=== PATIENT | female | born 1960 | race Caucasian/White ===

== ENCOUNTER → 2024-01-09 07:58 | Outpatient (REF) | payer OTHER, SELFPAY | LOC: MRI 3T 07:58 | PROVIDERS: ATTENDING PHYSICIAN Family Medicine | DX: R53.1 Weakness (principal); M48.02 Spinal stenosis, cervical region | CPT/HCPCS: 72141 ==

== ENCOUNTER 2024-02-24 15:55 | Inpatient (IN) | payer OTHER, SELFPAY ==
[2024-02-24] VITALS (12 sets, daily range): BP systolic 102–141; BP diastolic 46–96; BMI 20.4; BMI 20.9
--- NOTE | 2024-02-24 11:44 | ED.GENMED ---
History of Present Illness
General
Chief Complaint: Bowel Problem
Time Seen by Provider: 02/24/24 11:44
Travel History
Have you had any contact with someone who has COVID-19?: No
Do you have any symptoms of coronavirus? Fever > 100 degrees, chills, cough, shortness of breath, sore throat, loss of taste or smell, muscle aches, or headache?: No
History of Present Illness
History of Present Illness:
HPI: The patient presents with general unwell feeling including diarrhea and vomiting with poor p.o. intake. She states that she has had pancreatitis related to alcohol use in the past. She has had similar episodes with pancreatitis in the past.
She is here with her son that had similar but much less severe symptoms.
EXAM:
GENERAL: Well appearing in no distress
HEENT: Slightly dry oral mucosa
CARDIOVASCULAR: No murmurs, normal heart rate, regular rhythm, No chest wall tenderness
PULMONARY: No respiratory distress, breath sounds are clear and equal
ABDOMEN: Soft with no peritoneal signs, no tenderness, briskly heme positive brown stool
NEUROLOGIC: Excellent strength all extremities, no coordination deficits
PSYCHIATRIC: Appropriate mental status, normal insight and judgement
EXTREMITIES: Nontender, no edema, moves all extremities equally
SKIN: No rash, no lesions
TIME OF INITIAL ENCOUNTER: 12:30 PM
NUMBER AND COMPLEXITY OF PROBLEMS ADDRESSED AT THE ENCOUNTER
� Chronic conditions affecting care: High blood pressure, pancreatitis, depression
� Acute Exacerbation and/or Progression of Chronic Illness: This is an acute problem but has had similar episodes in the past
� Differential Diagnosis includes: Diarrhea and vomiting related to viral illness/foodborne illness, electrolyte abnormality, anemia
AMOUNT AND/OR COMPLEXITY OF DATA TO BE REVIEWED AND ANALYZED
� I performed an independent evaluation of and my interpretation is:
EKG:
CT:
X-rays:
Laboratory Studies: BUN 44, creatinine 0.9, bicarbonate 17, potassium 3.1, white count 16.3, hemoglobin 8.1
Other:
� Review of other/old records: Hemoglobin in 2021 was 10.9 but she has been as low as 7.4 in the past
� Clinical information was obtained by an independent historian: Spoke to son at bedside
� Prescriptions/Medications Considered but not given:
� Further testing considered but not performed: Considered CT imaging however the patient reports more of a diarrhea type of feeling as opposed to true significant pain. She has had a few CTs of the abdomen pelvis in the past in
the setting of pancreatitis were no other concern was found.
RISK OF COMPLICATIONS AND/OR MORBIDITY OR MORTALITY OF PATIENT MANAGEMENT
� Social determinants of health affecting care: Lives at home
� Discussion with other providers: Hospitalist for admission
� Escalation of care including admission/observation vs risk of discharge considered: The patient was given IV fluids. I have also ordered potassium given the potassium of 3.1 in the setting of diarrhea. Her lipase is normal.
On reassessment at 2:20 PM, she reports no significant improvement. She is persistently tachycardic. Will give a second liter of fluid. Leukocytosis noted however she describes more of a diarrhea sensation as opposed to true abdominal pain and
has no significant tenderness or at least focal findings. Her hemoglobin has dropped down to 8.1 from 10.9 and she has had report of bright red blood per rectum. However on digital rectal examination it was more of a dark brown stool with no gross
blood but was briskly heme positive. Her bicarb is only 17 and her BUN is 44 with a creatinine 0.9. I am concerned for dehydration as well as GI bleed. I have also replaced her potassium. I have ordered Pepcid and Protonix.
Past History
Past History
ED Past Medical History: HTN and Other (Chronic back and neck pain)
ED Past Surgical History: Orthopedic (Right hand finger, right shoulder rotator cuff surgery �2)
Social History
Tobacco: Former smoker (Quit 40 years ago)
Alcohol: Occasional (States she has 3-4 shots of whiskey a day)
Personal:
Living: with family (Lives with son)
Employment: Employed ([employer])
Phy Exam
Physical Exam
Physical Exam:
See HPI
Course
Orders/Labs/Results
Orders:
Orders
02/24/24 11:44
0.9% Sodium Chloride 1000 ml [Nss] 1,000 ml IV BOLUS
02/24/24 11:49
Famotidine [Pepcid] 20 mg IV NOW STA
Ondansetron Injectable [Zofran] 4 mg IV NOW STA
02/24/24 11:53
Complete Blood Count/With Diff Urgent
Comprehensive Metabolic Panel Urgent
Lipase Urgent
02/24/24 13:35
Potassium Chloride Powder [Klor-Con] 40 meq PO NOW STA
02/24/24 14:18
STOOL [C difficile Antigen & Toxins] Urgent
KURT Source: Feces/Stool
Specimen Description:
Stool Culture Urgent
KURT Source: Feces/Stool
Specimen Description:
0.9% Sodium Chloride 1000 ml [Nss] 1,000 ml IV BOLUS
02/24/24 14:23
Pantoprazole [Protonix IV] 80 mg IV NOW STA
Abnormal Lab Results
02/24/24
11:53
WBC 16.3 H 10^3/uL
(4.8-10.8)
RBC 2.33 L 10^6/uL
(4.20-5.40)
Hgb 8.1 L g/dL
(12.0-16.0)
Hct 23.4 L %
(37.0-47.0)
MCV 100.4 H fL
(81.0-99.0)
MCH 34.8 H pg
(27.0-31.0)
Abs Immat Gran (auto) 0.2 H 10^3/uL
(0-0.05)
Absolute Neuts (auto) 13.8 H 10^3/uL
(1.4-6.5)
Absolute Lymphs (auto) 1.1 L 10^3/uL
(1.2-3.4)
Absolute Monos (auto) 1.2 H 10^3/uL
(0.1-0.6)
Immature Gran % 0.9 H %
(0-0.5)
Neutrophils % 84.8 H %
(42.2-75.2)
Lymphocytes % 6.8 L %
(20.5-51.1)
Sodium 133 L mmol/L
(135-145)
Potassium 3.1 L mmol/L
(3.5-5.1)
Chloride 109 H mmol/L
(98-107)
Carbon Dioxide 17 L mmol/L
(22-30)
BUN 44 H mg/dl
(7-17)
Glucose 146 H mg/dl
(70-99)
Calcium 10.6 H mg/dl
(8.4-10.2)
Alkaline Phosphatase 138 H U/L
(38-126)
Total Protein 6.0 L g/dl
(6.3-8.2)
Albumin 3.4 L g/dl
(3.5-5.0)
02/24/24 11:53
02/24/24 11:53
Vital Signs
Initial and Last Documented VS:
Initial Vital Signs
Temp Pulse Resp BP Pulse Ox
98.1 F 114 18 141/96 100
02/24/24 11:30 02/24/24 11:30 02/24/24 11:30 02/24/24 11:30 02/24/24 11:30
Last Documented Vital Signs
Temp Pulse Resp BP Pulse Ox
99.3 F 114 18 120/69 99
02/24/24 14:42 02/24/24 14:15 02/24/24 14:15 02/24/24 14:00 02/24/24 13:45
*Critical Care Note
Total Time (30-74mins, 75-104mins- exclusive of procedures): Not Applicable
ED Attending Note
-
Portions of this chart may have been created with voice recognition software.� Occasional wrong word or��sound alike� substitutions may have occurred due to the inherent limitations of voice recognition software.
Discharge Plan
Departure
Patient Disposition: Admit
Date of Disposition: 02/24/24
Time of Disposition: 14:23
Presentation/result/management discussed w/ accepting MD/DO: Hospitalist
Discharge Problem:
Acute dehydration
Prescriptions:
No Action
metoprolol tartrate 25 MG tablet
25 mg PO BID
bupropion HCl 150 mg tablet sustained-release 12 hr
150 mg PO BID
Rx Instructions:
02/24/2024, take with 75 mg for a total of 225 mg.
meloxicam 15 mg Tablet
15 mg PO BID
loperamide [Imodium A-D] 2 mg Tablet
1 mg PO Q4H PRN (Reason: diarrhea)
bupropion HCl 75 mg tablet
75 mg PO BID
Rx Instructions:
02/24/2024, take with 150 mg for a total of 225 mg.
ibuprofen 200 mg Tablet
600 mg PO TID
metaxalone 800 mg Tablet
800 mg PO BID
Pancreatic Enzymes
1 cap PO MEALS
Patient Comments:
02/24/2024, Pancreatic Enzyme Blend: 1000 mg; Protease: 223,000 NURSING HOME units; Amylase: 245,000 NURSING HOME units; Lipase: 35,500 NURSING HOME units. [employer] Brand.
loratadine 10 mg Tablet
10 mg PO DAILY
Referrals:
Damian Worthy MD [Family Provider] -
Interventions
Interventions:
*Risk Screen - Suicide Last Done: 02/24/24 11:30
*General Assessment Last Done: 02/24/24 12:02
*Neglect/Abuse Screening Last Done: 02/24/24 11:30
*ED COVID-19 Vaccine History Last Done: 02/24/24 11:30
IQ-Xrhmom-Gbmttaqfya Assessment Last Done: 02/24/24 14:23
Discharge Date and Time
Print Language: CITIZEN OF [place]
[2024-02-24] MEDS: NSS 1000 IV ×2 (11:56→14:33)
[2024-02-24] MEDS: ZOFRAN 4 MG IV (12:00)
[2024-02-24] MEDS: PEPCID 20 MG IV (12:01)
[2024-02-24 12:06] LABS: % Basophils 0.1 % (0-2); % Immature Granulocytes 0.9 % (0-0.5); % Lymphocytes 6.8 % (20.5-51.1); % Monocytes 7.4 % (1.7-9.3); % Neutrophils 84.8 % (42.2-75.2); Absolute Immature Granulocytes 0.2 10^3/uL (0-0.05); Absolute Lymphocytes 1.1 10^3/uL (1.2-3.4); Absolute Monocytes 1.2 10^3/uL (0.1-0.6); Absolute Neutrophils 13.8 10^3/uL (1.4-6.5); Hematocrit 23.4 % (37.0-47.0); Hemoglobin 8.1 g/dL (12.0-16.0); Mean Corp Hgb Conc. 34.6 g/dL (33.0-37.0); Mean Corpuscular Hgb 34.8 pg (27.0-31.0); Mean Corpuscular Volume 100.4 fL (81.0-99.0); Mean Platelet Volume 9.8 fL (7.4-10.4); Nucleated Red Blood Cells % 0 %; Platelet Count 231 10^3/uL (130-400); Red Blood Cell Count 2.33 10^6/uL (4.20-5.40); Red Cell Dist. Width 12.7 % (11.5-14.5); White Blood Cell Count 16.3 10^3/uL (4.8-10.8)
[2024-02-24 12:30] LABS: ALT (SGPT) 12 U/L (0-35); AST (SGOT) 21 U/L (14-36); Albumin 3.4 g/dl (3.5-5.0); Alkaline Phosphatase 138 U/L (38-126); Blood Urea Nitrogen 44 mg/dl (7-17); Calcium 10.6 mg/dl (8.4-10.2); Carbon Dioxide 17 mmol/L (22-30); Chloride 109 mmol/L (98-107); Estimated Creatinine Clearance 60 ml/min; Glucose 146 mg/dl (70-99); Lipase 67 U/L (23-300); Potassium 3.1 mmol/L (3.5-5.1); Sodium 133 mmol/L (135-145); Total Bilirubin 0.4 mg/dl (0.2-1.3); eGFR > 60.00
[2024-02-24] MEDS: KLOR-CON 40 MEQ PO (14:39)
[2024-02-24] MEDS: PROTONIX IV 80 MG IV ×2 (14:42→17:16)
--- NOTE | 2024-02-24 15:50 | HPS.HSE ---
Addendum entered and electronically signed by Lefty Larios MD 02/24/24 16:19:
63-year-old female admitted because of diarrhea which started Thursday after she ate seafood. No one else at home sick. She has multiple bowel movements a day with blood
On examination not in any acute distress
Awake alert oriented
Cardiovascular system S1-S2 appreciated
Chest clear to auscultation
Abdomen soft and nontender
No pedal edema
Neuroexam is nonfocal
# SIRS in the setting of bloody diarrhea likely infectious in nature
Stool studies
IV fluids with bicarb
Hold off on antibiotics
Add PPI
Hold ibuprofen
GI consultation
# Metabolic acidosis likely secondary to diarrhea-fluids with bicarb
# Acute blood loss anemia likely secondary to rectal bleeding she also has chronic anemia
Check iron studies
Follow hemoglobin
# Hypokalemia likely secondary to GI losses
Replace potassium
Check magnesium
# Hypertension-hold metoprolol
# Depression-continue Wellbutrin
# Arthritis and chronic back pain-patient should not be taking meloxicam and ibuprofen especially with alcohol use
# Alcohol use disorder she drinks 4 Herbert shots every day
PPI
Cessation counseling
Replace thiamine and folic acid
Stop alcohol 2 days ago.
Watch for withdrawal symptoms MSAS protocol.
# History of pancreatitis-on pancreatic enzymes
# DVT prophylaxis SCDs
# Full code
Original Note:
Family Physician
-
Family Physician: Damian Worthy
Chief Complaint
-
Bloody Diarrhea
History of Present Illness
This is a 63 year old female with a past medical history of hypertension, pancreatitis, depression and chronic back pain who presents to the ED for diarrhea and nausea x 2 days. She states these symptoms began on 02/21 after a lobster dinner on
Thursday and steak and potatoes dinner on Thursday. On Thursday, she was unable to take more than a few bites due to onset of nausea. The diarrhea has been constant since onset and has been liquid with dark maroon blood in nature. She tried taking
Imodium 1 tablet TID on 02/22 with no relief. She also has mild non- radiating lower abdominal pain that is crampy in nature. She states she has experienced diarrhea with blood before when she last was diagnosed with pancreatitis. She states her son
has similar but more mild symptoms, but states he did not eat the lobster and think he just has a 'nervous stomach.' She admits to sweats and chills, but denies recorded fevers. She denies recent antibiotics or recent travel.
Medical History
Past Medical History
Past Medical History: Reports Other
Additional Past Medical History:
Essential Hypertension
Depression
Osteoarthritis with Chronic Back/Neck Pain
Alcohol Use Disorder
Past Surgical History: Reports Other
Additional Past Surgical History:
Right Rotator Cuff
Social History
Tobacco: Non-smoker
Alcohol: Daily (3-4 shots of whiskey per night)
Family History
Family History: Not pertinent
Allergies / Home Medications
Allergies reflects when Allergies were last updated in [facility].
Home Medications with original date entered in [facility]
Allergy/Medication List:
Allergies
Allergy/AdvReac Type Severity Reaction Status Date / Time
No Known Allergies Allergy Verified 02/24/24 11:30
Home Medications
metoprolol tartrate 25 mg tablet 25 mg PO BID Blood Pressure 02/03/22
Pancreatic Enzymes 1 cap PO MEALS Gastrointestinal Issue 02/24/24
bupropion HCl 150 mg tablet,12 hr sustained-release 150 mg PO BID depession/anxiety 02/24/24
bupropion HCl 75 mg tablet 75 mg PO BID depression/anxiety 02/24/24
ibuprofen 200 mg tablet 600 mg PO TID pain 02/24/24
loperamide 2 mg tablet (Imodium A-D) 1 mg PO Q4H PRN diarrhea 02/24/24
loratadine 10 mg tablet 10 mg PO DAILY Allergies 02/24/24
meloxicam 15 mg tablet 15 mg PO BID pain 02/24/24
metaxalone 800 mg tablet 800 mg PO BID Muscle Spasms 02/24/24
Review of Systems
-
A 12 point ROS was completed and negative except as noted: Yes
Constitutional: Reports Chills; Denies Fever
Respiratory: Denies Cough or Trouble Breathing
Cardiac: Denies Chest Pain or Palpitations
Abdomen/GI: Reports Abdominal Pain, Nausea and Diarrhea; Denies Vomiting
Physical Exam
Vital Signs
Vital Signs
Temp Pulse Resp BP Pulse Ox
99.3 F 114 18 120/69 99
02/24/24 14:42 02/24/24 14:15 02/24/24 14:15 02/24/24 14:00 02/24/24 13:45
Physical Exam
General: Comfortable and Conversant
HEENT: Anicteric and Moist mucous membranes
Respiratory: Clear and Non Labored Respirations
Cardiac: S1/S2, Regular Rhythm and Tachycardia
GI: Soft and Tender (Mild in suprapubic region without rebound or guarding)
Musculoskeletal: No Clubbing, Cyanosis, No Cyanosis and No Edema
Skin: Warm and Dry
Neuro: Awake, Alert, Oriented and Nonfocal/grossly intact
Psych: Calm
Laboratory Results
-
02/24/24 11:53
Laboratory Results
Total Bilirubin 0.4 mg/dl (0.2-1.3) 02/24/24 11:53
AST 21 U/L (14-36) 02/24/24 11:53
ALT 12 U/L (0-35) 02/24/24 11:53
Alkaline Phosphatase 138 U/L (38-126) H 02/24/24 11:53
Lipase 67 U/L (23-300) 02/24/24 11:53
Data Reviewed
-
Lab Data: Labs Reviewed by me
Impression/Plan
-
SIRS in setting of Bloody Diarrhea, likely infectious diarrhea
-Consult GI
-Check Stool Culture and Stool for C Diff
-Hold on antibiotics
-Continue IVFs
Acute Blood Loss Anemia
-Check iron studies, vitamin b12 and folic acid
-Trend Hgb
Hypokalemia secondary to GI losses
-Replace potassium
-Check magnesium level
-Recheck potassium level in AM
Essential Hypertension
-Hold oral meds for now
Depression
-Continue Wellbutrin
Osteoarthritis with Chronic Back/Neck Pain
-Reviewed with patient about not taking ibuprofen and meloxicam at the same time
Alcohol Use Disorder
-Continue alcohol withdrawal protocol
-Continue thiamine and folic acid
DVT proph: SCDs
Code Status: Full Code
[2024-02-24 16:07] LABS: Magnesium 1.8 mg/dl (1.6-2.3)
--- NOTE | 2024-02-24 16:18 | CON.GI ---
Addendum entered and electronically signed by Margaret Colón DO 02/24/24 16:46:
I saw and examined the patient.
The TRUST VAULT CLERK or PA's note was reviewed and I agree with the note.
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
started following consumption of lobster. No other family or friends ate the same meal. Has a difficult time describing the stool, at times red but also black, occurs more than hourly in the fasting state, with multiple nighttime occurrences. She
endorses nausea, denies any vomiting, also reports anorexia since symptoms started. Denies recent antibiotic use or sick contacts. She is an active alcohol user, takes 4 shots of whiskey daily prior to bedtime, last drink was Thursday. States that
due to her severe diarrhea and abdominal discomfort she has not had a drink since that time. Denies history of withdrawal symptoms.
Prior EGD and colonoscopy in 2019, EGD with large amount of retained food, indication was anemia and melena. Colonoscopy with sigmoid diverticulosis, otherwise unremarkable.
Meloxicam and Ibuprofen listed on home medications, but patient denied on eval.
Tmax 99.3, tachycardic to 110's, otherwise, hemodynamically stable. Hemoglobin 8.1 on arrival, last Hgb was 10.2 in 01/2022, Plt 428. Elevated BUN with normal Cr., gelatinous, dark brown, heme positive stool on rectal. Concern for UGIB, unclear if
this is true diarrhea, or, if patient is actually just having melenic stool, mistakening for diarrhea. That said, she does have a leukoctyosis, otherwise, afebrile She has risk factors for UGI bleeding, including NSAID use and daily EtoH use, no
known history of cirrhosis. She has mild elevation in alk phos.
Recommendations:
-2 large bore peripheral gauge IVs
-IVF
-PPI gtt
-H&Hq8 hours, transfuse for hgb <8
-iron studies
-NPO, EGD in AM
-check stool studies, blood cultures
-depending on results from EGD, will discuss if colonoscopy needs to be pursued
Original Note:
Consultation
-
Date/Time Consultation Requested: 02/24/24 1600
Date/Time Consultation Performed: 02/24/24 1615
Requesting Provider: BILLY Larson
Performing Provider: Dr. Colón/ROMMEL Jordan
Reason for Consultation: diarrhea
Medical History
Chief Complaint / HPI
Chief Complaint: diarrhea
History of Present Illness:
63-year-old female past medical history of hypertension, pancreatitis, alcohol abuse, depression, chronic back pain presents to the emergency room with melena/black stools since Thursday after eating lobster. The patient states that she ate lobster
on Thursday and developed acute onset of black diarrhea since then associated with nausea without any vomiting. Multiple times a day more than she can count. She states that she would have abdominal cramping prior to evacuation of bowels. She
drinks approximately 4 whiskeys a night but stopped on Thursday evening. She denies any fevers, chills, vomiting, hematochezia, dysphagia or odynophagia. No early satiety or unintentional weight loss.Patient states that she has some dyspnea on
exertion and mild shortness of breath. There is minimal stool in the rectal vault however this is very dark brown that is briskly OB positive performed rectal by myself. The patient denies any history of anticoagulation, aspirin ibuprofen Motrin or
Aleve. . Patient presents with a WBC count 16.3, hemoglobin 8.1, hematocrit of 23.4, MCV 100.4, MCH 34.8, platelets 231, no coags, sodium 133, potassium 3.1, chloride 109, CO2 17, BUN 44, creatinine 0.9, glucose 146, calcium 10.6, magnesium 1.8,
iron studies pending, total bilirubin 0.4, AST 21, ALT 12, alk phos 138, albumin 3.4, lipase 67. No imaging studies at this time.
Past Medical History
Past Medical History: HTN and Other (Pancreatitis, depression, chronic back pain, History of peptic ulcer disease 'many years ago')
Past Surgical History: Orthopedic (Right rotator cuff)
Social History
Tobacco: Non-Smoker
Alcohol: Daily (4 drinks whiskey nightly. Last drink was Thursday )
Drug: None
Personal:
Living: With Family (son Christopher lives at home with her)
Family History
Family History: Other (Family history of colon cancer in maternal grandparent, No other family history of gastrointestinal malignancy or IBD)
Allergies / Home Medications
Allergy/AdvReac Type Severity Reaction Status Date / Time
No Known Allergies Allergy Verified 02/24/24 11:30
�Medication �Instructions �Recorded
metoprolol tartrate 25 mg tablet 25 mg PO BID Blood Pressure 02/03/22
Pancreatic Enzymes 1 cap PO MEALS Gastrointestinal 02/24/24
Issue
bupropion HCl 150 mg tablet,12 hr 150 mg PO BID depession/anxiety 02/24/24
sustained-release
bupropion HCl 75 mg tablet 75 mg PO BID depression/anxiety 02/24/24
ibuprofen 200 mg tablet 600 mg PO TID pain 02/24/24
loperamide 2 mg tablet (Imodium 1 mg PO Q4H PRN diarrhea 02/24/24
A-D)
loratadine 10 mg tablet 10 mg PO DAILY Allergies 02/24/24
meloxicam 15 mg tablet 15 mg PO BID pain 02/24/24
metaxalone 800 mg tablet 800 mg PO BID Muscle Spasms 02/24/24
Review of Systems
-
All other systems: A 12 pt ROS was Negative except as stated above in HPI
Vital Signs
Temp Pulse Resp BP Pulse Ox
99.3 F 111 18 116/67 100
02/24/24 14:42 02/24/24 15:45 02/24/24 15:45 02/24/24 15:00 02/24/24 15:45
Physical Exam
Exam
General: No Apparent Distress
HEENT: Anicteric
Respiratory: Clear
Cardiac: Regular Rhythm (Mildly tachycardic at 109 on tele)
GI: Soft, Non Tender, Non Distended and Normal Bowel Sounds
Rectal: Hem Positive (Scant but very dark stool in rectal vault mildly gelatinous, OB positive)
Musculoskeletal: No Edema
Skin: Warm and Dry
Neuro: Awake, Alert, Oriented and Other (Patient had difficult time picking up hands, reqiored assistance to hold up and appeared slightly confused at times)
Psych: Calm
Results
WBC 16.3 10^3/uL (4.8-10.8) H 02/24/24 11:53
Hgb 8.1 g/dL (12.0-16.0) L 02/24/24 11:53
Hct 23.4 % (37.0-47.0) L 02/24/24 11:53
MCV 100.4 fL (81.0-99.0) H 02/24/24 11:53
Plt Count 231 10^3/uL (130-400) 02/24/24 11:53
Absolute Neuts (auto) 13.8 10^3/uL (1.4-6.5) H 02/24/24 11:53
Sodium 133 mmol/L (135-145) L 02/24/24 11:53
Potassium 3.1 mmol/L (3.5-5.1) L 02/24/24 11:53
Chloride 109 mmol/L (98-107) H 02/24/24 11:53
Carbon Dioxide 17 mmol/L (22-30) L 02/24/24 11:53
BUN 44 mg/dl (7-17) H 02/24/24 11:53
Creatinine 0.9 mg/dL (0.6-1.0) 02/24/24 11:53
Calcium 10.6 mg/dl (8.4-10.2) H 02/24/24 11:53
Total Bilirubin 0.4 mg/dl (0.2-1.3) 02/24/24 11:53
AST 21 U/L (14-36) 02/24/24 11:53
ALT 12 U/L (0-35) 02/24/24 11:53
Alkaline Phosphatase 138 U/L (38-126) H 02/24/24 11:53
Lipase 67 U/L (23-300) 02/24/24 11:53
Diagnostic Image Results:
none
Prior GI Procedures:
EGD: EGD: 07/20/2020 Dr. Ontiveros
Normal esophagus.
- Z-line regular, 40 cm from the incisors.
- A medium amount of food (residue) in the stomach (body), which limited the examination of the gastric body.
- Normal duodenal bulb and second portion of the duodenum.
- No specimens collected. '
Colonoscopy: ([facility] ) 07/21/2020 - Diverticulosis in the sigmoid colon.
- The examination was otherwise normal.
- No specimens collected.
Assessment / Plan
-
63-year-old female past medical history of hypertension, pancreatitis, alcohol abuse, depression, chronic back pain presents to the emergency room with melena/black stools since Thursday after eating lobster. The patient states that she ate lobster
on Thursday and developed acute onset of black diarrhea since then associated with nausea without any vomiting. Multiple times a day more than she can count. She states that she would have abdominal cramping prior to evacuation of bowels. She
drinks approximately 4 whiskeys a night but stopped on Thursday evening. Upon review of records patient was seen in 2021 also had diarrhea at that time. Infectious etiology was ruled out. Fecal fats were within normal limits in 2021. Also on review
of records it appears as if patient is also taking ibuprofen 600 mg 3 times daily for pain. She also appears as if she is also on meloxicam 15 mg p.o. twice daily as well. Patient might not realize that she is on these medications and that they
are NSAIDs. Patient with elevated BUN out of proportion of creatinine with OB positive stools and anemia. History of peptic ulcer disease in the past she states that she was on either cimetidine or ranitidine. Also with chronic alcohol abuse.
Prior history of diarrhea in 2021 did not follow-up for further workup.
Impression:
Diarrhea-> per patient started after [facility] however looks as if she was on Pancreatic enzymes at home, was worked up in the past 2021, unsure if she is referring to melena.
Melena-> Black stools since Thursday with BUN out of proportion to Creat with hx of remote PUD, NSAIDs and ETOH abuse
Anemia-> Hgb 8.1 past 10.9 (2021)
Stool Occult blood positive-> very dark, scant stool in vault
ETOH abuse-> daily whisky 3-4, last use Thursday.
Leukocytosis
Hypokalemia
Acidosis
Plan:
-NPO except meds
-Protonix gtt
-Trend hemoglobin transfuse for hemoglobin less than 7
-EGD planned for tomorrow
-Patient states that her son Christopher can make decisions on her behalf if she becomes incapacitated
-Await pending stool studies
-Blood cultures to be drawn and are pending
-CBC, CMP, PT/INR in a.m.
-alcohol withdrawal prophylaxis
-Further recommendations to be forthcoming
-
-
Thank you for consultation and allowing me to participate in the patient's care. Please call the contact center specialist GI physician during the after hours with any questions or concerns.
[2024-02-24 16:27] LABS: Iron 55 ug/dl (37-170)
[2024-02-24 16:37] LABS: Percent Saturation 21 % (20-50); Total Iron Binding Capacity 253 ug/dl (265-497)
[2024-02-24] MEDS: SODIUM BICARBONATE 1150 MEQ IV (17:17)
[2024-02-24] MEDS: PROTONIX 100 IV (17:39)
[2024-02-24 17:56] LABS: Folate 6.9 ng/ml (2.76-20); Vitamin B12 279 pg/ml (239-931)
[2024-02-24] MEDS: THIAMINE INJECTION 200 MG IV (20:03)
[2024-02-24] MEDS: WELLBUTRIN SR (12 hour sustained release) 150 MG PO (20:03)
[2024-02-24] MEDS: WELLBUTRIN REGULAR RELEASE 75 MG PO (20:03)
[2024-02-24 20:20] LABS: Hematocrit 17.7 % (37.0-47.0); Hemoglobin 6.3 g/dL (12.0-16.0)
[2024-02-24 20:29] LABS: Blood Urea Nitrogen 34 mg/dl (7-17); Calcium 9.3 mg/dl (8.4-10.2); Carbon Dioxide 16 mmol/L (22-30); Chloride 115 mmol/L (98-107); Estimated Creatinine Clearance 69 ml/min; Glucose 107 mg/dl (70-99); Potassium 3.6 mmol/L (3.5-5.1); Sodium 134 mmol/L (135-145); eGFR > 60.00
[2024-02-24] MEDS: ATIVAN 1 MG PO (20:40)
--- NOTE | 2024-02-24 20:52 | W.PN.UPDATE ---
Update Note
Progress Note Update
RN notified LEAD PERFORMANCE SUPPORT ANALYST hgb of 6.3. GI note noted, consent signed and in the chart, Patient is stable with stable VS per nursing. will order 2 units of PRBC's.
[2024-02-25] VITALS (13 sets, daily range): BP systolic 16–130; BP diastolic 52–80; BMI 20.9
[2024-02-25] MEDS: PROTONIX 100 IV ×3 (03:16→23:44)
[2024-02-25 07:21] LABS: Hematocrit 24.1 % (37.0-47.0); Hemoglobin 8.4 g/dL (12.0-16.0); Mean Corp Hgb Conc. 34.9 g/dL (33.0-37.0); Mean Corpuscular Hgb 33.2 pg (27.0-31.0); Mean Corpuscular Volume 95.3 fL (81.0-99.0); Mean Platelet Volume 9.8 fL (7.4-10.4); Platelet Count 154 10^3/uL (130-400); Red Blood Cell Count 2.53 10^6/uL (4.20-5.40); Red Cell Dist. Width 16.4 % (11.5-14.5); White Blood Cell Count 10.5 10^3/uL (4.8-10.8)
[2024-02-25 07:32] LABS: INR 1.07; PT 13.9 Sec (11.4-14.6)
[2024-02-25 07:36] LABS: Blood Urea Nitrogen 27 mg/dl (7-17); Calcium 9.3 mg/dl (8.4-10.2); Carbon Dioxide 19 mmol/L (22-30); Chloride 112 mmol/L (98-107); Estimated Creatinine Clearance 69 ml/min; Glucose 89 mg/dl (70-99); Magnesium 1.7 mg/dl (1.6-2.3); Potassium 3.3 mmol/L (3.5-5.1); Sodium 137 mmol/L (135-145); eGFR > 60.00
[2024-02-25] MEDS: FOLVITE 1 MG PO (08:48)
[2024-02-25] MEDS: THIAMINE INJECTION 200 MG IV ×2 (08:48→20:06)
[2024-02-25] MEDS: WELLBUTRIN REGULAR RELEASE 75 MG PO ×2 (08:48→20:06)
[2024-02-25] MEDS: WELLBUTRIN SR (12 hour sustained release) 150 MG PO ×2 (09:00→20:06)
[2024-02-25] MEDS: SODIUM BICARBONATE 1150 MEQ IV (10:52)
--- NOTE | 2024-02-25 13:00 | W.PN.HOSP.TC ---
Today's Communication/Plan
-
Endoscopy today
Follow hemoglobin
Assessment / Plan
Assessment / Plan
58-year-old female came with bloody stool after she had some lobster. She denies vomiting any blood. Today she admits that she also had some dark black stools.
On examination awake alert oriented
Denies any abdominal pain
Cardiovascular system S1-S2 appreciated
Chest clear to auscultation
Abdomen soft and nontender
No pedal edema
# Rectal bleeding
Melena
Hold NSAIDS
EGD planned today
Continue Protonix and n.p.o.
Stool studies pending
#Acute blood loss anemia
Status post 2 units of blood transfusion
# SIRS in the setting of bloody diarrhea likely infectious in nature
Stool studies
IV fluids with bicarb
Hold off on antibiotics
# Hypokalemia-replace potassium and magnesium
# Metabolic acidosis likely secondary to diarrhea-fluids with bicarb
# Acute blood loss anemia likely secondary to rectal bleeding she also has chronic anemia
Adequate iron levels
Replace low normal B12
# Hypokalemia likely secondary to GI losses
Replace potassium
Check magnesium
# Hypertension-hold metoprolol
# Depression-continue Wellbutrin
# Arthritis and chronic back pain-patient should not be taking meloxicam and ibuprofen especially with alcohol use
# Alcohol use disorder she drinks 4 Herbert shots every day
PPI
Cessation counseling
Replace thiamine and folic acid
Stop alcohol 2 days ago.
Watch for withdrawal symptoms MSAS protocol.
# History of pancreatitis-on pancreatic enzymes
# DVT prophylaxis SCDs
# Full code
Anticipated Discharge: 24 - 48 hours
Subjective/Interval History
-
Date of Service: February 25, 2024
Objective Data
-
Labs:
Laboratory Results
02/25/24
07:07
WBC 10.5
Hgb 8.4 L D
Hct 24.1 L
Plt Count 154 D
PT 13.9
INR 1.07
Sodium 137
Potassium 3.3 L
Chloride 112 H
Carbon Dioxide 19 L
BUN 27 H
Creatinine 0.8
Glucose 89
Calcium 9.3
Vital Signs:
Vital Signs
Temp Pulse Resp BP Pulse Ox
98.1 F 96 16 121/66 100
02/25/24 11:48 02/25/24 11:48 02/25/24 11:48 02/25/24 11:48 02/25/24 11:48
I&O
02/24/24 02/25/24 02/26/24
06:59 06:59 06:59
Intake Total 740 / 740
Balance 740 / 740
[2024-02-25] MEDS: MAGNESIUM SULFATE 102 GRAMS IV (14:01)
--- NOTE | 2024-02-25 14:19 | CM ---
Met with pt at bedside
Pt lives with her in a 2 story home
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
DME - none
SNF/HH - denies past hx
Has ride at d/c
PCP - Dr Bobby Worthy
Pharm - [facility], mail-order, unsure of name
CM will follow for d/c needs
Plan - anticipate home no needs
[2024-02-25] MEDS: KCL 270 MEQ IV (14:58)
[2024-02-25] MEDS: SODIUM BICARBONATE IV (20:00)
[2024-02-26 03:39] VITALS: BP 123/72
[2024-02-26 06:00] VITALS: BMI 21.8
[2024-02-26 06:14] LABS: Hematocrit 23.2 % (37.0-47.0); Hemoglobin 8.3 g/dL (12.0-16.0); Mean Corp Hgb Conc. 35.8 g/dL (33.0-37.0); Mean Corpuscular Hgb 33.1 pg (27.0-31.0); Mean Corpuscular Volume 92.4 fL (81.0-99.0); Platelet Count 160 10^3/uL (130-400); Red Blood Cell Count 2.51 10^6/uL (4.20-5.40); Red Cell Dist. Width 16.4 % (11.5-14.5); White Blood Cell Count 7.8 10^3/uL (4.8-10.8)
[2024-02-26] MEDS: FOLVITE 1 MG PO (07:49)
[2024-02-26] MEDS: WELLBUTRIN SR (12 hour sustained release) 150 MG PO ×2 (07:49→20:00)
[2024-02-26] MEDS: THIAMINE INJECTION 200 MG IV ×2 (07:49→20:01)
[2024-02-26] MEDS: VITAMIN B-12 1000 MCG PO (07:49)
[2024-02-26] MEDS: WELLBUTRIN REGULAR RELEASE 75 MG PO ×2 (07:49→20:00)
[2024-02-26 07:59] VITALS: BP 121/70
[2024-02-26 08:21] LABS: Blood Urea Nitrogen 17 mg/dl (7-17); Calcium 8.9 mg/dl (8.4-10.2); Carbon Dioxide 23 mmol/L (22-30); Chloride 110 mmol/L (98-107); Estimated Creatinine Clearance 81 ml/min; Glucose 100 mg/dl (70-99); Magnesium 1.7 mg/dl (1.6-2.3); Potassium 3.7 mmol/L (3.5-5.1); Sodium 135 mmol/L (135-145); eGFR > 60.00
[2024-02-26] MEDS: PROTONIX 100 IV ×2 (09:07→20:39)
[2024-02-26 12:05] VITALS: BP 115/69
[2024-02-26] MEDS: MAGNESIUM SULFATE 102 GRAMS IV (12:24)
[2024-02-26 13:59] LABS: Hematocrit 24.4 % (37.0-47.0); Hemoglobin 8.6 g/dL (12.0-16.0)
--- NOTE | 2024-02-26 14:02 | W.PN.GI.CBS2 ---
Addendum entered and electronically signed by Hugh Banda MD 02/26/24 14:59:
I saw and examined the patient.
The [employer]'s note was reviewed and I agree with the note.
Upper GI bleeding-noted to have nonbleeding gastric ulcer with clean base/multiple nonbleeding duodenal ulcers on EGD 02/25/2024
Patient continues to have dark stool with abdominal cramps. Repeat hemoglobin is stable.
Will continue monitor H&H
Clear liquid diet today
Continue PPI drip
If she continues to have significant abdominal pain with GI bleeding will consider CTA
Original Note:
Today's Communication / Plan
-
Repeat H&H now. Continue PPI drip. Will reduce diet to clear liquids. Consider CTA imaging if overt bleeding versus CT with contrast given her abdominal cramping and pain.
Assessment / Plan
-
The patient is a 63-year-old female past medical history of hypertension, pancreatitis, alcohol abuse, depression, chronic back pain who presented to the emergency room with melena/black stools after eating lobster with associated n/v. She drinks
approximately 4 whiskeys a night but stopped on Thursday evening. Reported NSAID use with meloxicam and ibuprofen as well. On admission with elevated BUN out of proportion of creatinine with OB positive stools and anemia. History of peptic ulcer
disease in the past she states that she was on either cimetidine or ranitidine. Prior history of diarrhea in 2021 did not follow-up for further workup. She underwent EGD on 02/24 which revealed several nonbleeding ulcers and was advised to continue
on PPI twice daily and avoid NSAIDs. She did receive 1 unit of packed red blood cells and her hemoglobin has been stable.
02/25/2024 EGD, Dr. Colón: Z-line regular. 2 cm hiatal hernia. Congestive gastropathy. Non-bleeding gastric ulcer with a clean ulcer base (Jones Class III). Non-bleeding duodenal ulcers with a clean ulcer base (Jones Class III). Biopsies
were taken with a cold forceps for H pylori testing.
Problem list:
-Diarrhea
-Melena, burgundy stool
-macrocytic Anemia, Hgb 8.1 past 10.9 (2021)
-Stool Occult blood positive
-hx ETOH abuse, daily whisky 3-4, last use Thursday.
-Leukocytosis, resolved
-Hypokalemia, resolved
-Acidosis, resolved
Recommendations::
-EGD findings as above with several gastric and duodenal ulcers that did not have any stigmata of recent bleeding, along with congestive gastropathy. Now with some burgundy stool although with stable hemoglobin.
-Will repeat her H&H at this time
-Continue Protonix drip
-Will place back on clear liquid diet
-Follow stool output and for ongoing signs of bleeding. Mild tachycardia but she is normotensive.
-If she has gross bleeding to consider CTA imaging. She does admit to abdominal cramping, therefore to consider CT imaging to rule out colitis, she is not febrile or hypotensive.
-Reassuringly stools are negative for infection, and repeat C. difficile is negative
-Alcohol withdrawal protocol, her tachycardia may be related to this as she also appeared tremulous
-She should avoid NSAIDs completely
-If ongoing concern for bleeding could also consider inpatient colonoscopy
-Will follow
Subjective
Subjective
Date of Service: February 26, 2024
We were asked to reevaluate the patient due to ongoing signs of GI bleeding. The patient reports she has been having abdominal crampiness associated with maroon stool every time she moves her bowels. Reassuringly her BUN normalized and her
hemoglobin has been stable since yesterday. She continues on PPI drip. She is mildly tachycardic but otherwise with normal hemodynamics.
Objective
Data Reviewed
Laboratory Data:
Laboratory Results
02/26/24 07:47
Laboratory Results
PT 13.9 Sec (11.4-14.6) 02/25/24 07:07
INR 1.07 02/25/24 07:07
Magnesium 1.7 mg/dl (1.6-2.3) 02/26/24 07:47
Total Bilirubin 0.4 mg/dl (0.2-1.3) 02/24/24 11:53
AST 21 U/L (14-36) 02/24/24 11:53
ALT 12 U/L (0-35) 02/24/24 11:53
Alkaline Phosphatase 138 U/L (38-126) H 02/24/24 11:53
Lipase 67 U/L (23-300) 02/24/24 11:53
Vital Signs and I&O:
Vital Signs
Temp Pulse Resp BP Pulse Ox
98.4 F 99 16 115/69 99
02/26/24 12:05 02/26/24 12:05 02/26/24 12:05 02/26/24 12:05 02/26/24 12:05
I&O
02/25/24 02/26/24 02/27/24
06:59 06:59 06:59
Intake Total 740 / 740 240 / 240
Balance 740 / 740 240 / 240
Physical Exam
Physical Exam
HEENT: Anicteric
Cardiology: S1 and S2 (Regular rate/rhythm)
Pulmonary: Clear
GI: Soft, Non Distended, Tender (Minimally tender generalized throughout the abdomen) and Normal Bowel Sounds
Rectal: Other (Burgundy appearing stool (visualized in the bathroom collection hat))
Neuro: Non Focal
--- NOTE | 2024-02-26 14:25 | W.PN.HOSP.TC ---
Today's Communication/Plan
-
Watch Hb
Watch for any more bleeding
? Passing old blood
PPI
Assessment / Plan
Assessment / Plan
58-year-old female came with bloody stool after she had some lobster. She denies vomiting any blood. Today she admits that she also had some dark black stools.
On examination awake alert oriented
Denies any abdominal pain
Cardiovascular system S1-S2 appreciated
Chest clear to auscultation
Abdomen soft and nontender
No pedal edema
# Rectal bleeding
Has maroon Small Bleeds
Melena
Hold NSAIDS
EGD Gastric ulcer with no bleeding and duodenal ulcers with no bleeding
Continue Protonix
She still has bleeding
PPI changed to IV
Diet changed to clears
Stool studies pending
#Acute blood loss anemia
Status post 2 units of blood transfusion
follow Hb
# SIRS in the setting of bloody diarrhea likely infectious in nature
# Hypokalemia-replace potassium and magnesium PRN
# Metabolic acidosis likely secondary to diarrhea-resolved
# Acute blood loss anemia likely secondary to rectal bleeding she also has chronic anemia
Adequate iron levels
Replace low normal B12
# Hypokalemia likely secondary to GI losses
Replace potassium
Replace magnesium
# Hypertension-hold metoprolol
# Depression-continue Wellbutrin
# Arthritis and chronic back pain-patient should not be taking meloxicam and ibuprofen especially with alcohol use
# Alcohol use disorder she drinks 4 Talent shots every day
PPI
Cessation counseling
Replace thiamine and folic acid
Stop alcohol 2 days ago.
Watch for withdrawal symptoms MSAS protocol.
# History of pancreatitis-on pancreatic enzymes
# DVT prophylaxis SCDs
# Full code
D/W RN
D/W GI
Anticipated Discharge: Within 24 hours
Subjective/Interval History
-
Date of Service: February 26, 2024
Objective Data
-
Labs:
Laboratory Results
02/26/24 02/26/24 02/26/24
05:24 07:47 13:42
WBC 7.8
Hgb 8.3 L 8.6 L
Hct 23.2 L 24.4 L
Plt Count 160
Sodium Cancelled 135
Potassium Cancelled 3.7
Chloride Cancelled 110 H
Carbon Dioxide Cancelled 23
BUN Cancelled 17
Creatinine Cancelled 0.7
Glucose Cancelled 100 H
Calcium Cancelled 8.9
Vital Signs:
Vital Signs
Temp Pulse Resp BP Pulse Ox
98.4 F 99 16 115/69 99
02/26/24 12:05 02/26/24 12:05 02/26/24 12:05 02/26/24 12:05 02/26/24 12:05
I&O
02/25/24 02/26/24 02/27/24
06:59 06:59 06:59
Intake Total 740 / 740 240 / 240
Balance 740 / 740 240 / 240
[2024-02-26 15:32] VITALS: BP 128/72
[2024-02-26 19:45] VITALS: BP 144/80
[2024-02-26 23:45] VITALS: BP 125/69
[2024-02-27] MEDS: TYLENOL 650 MG PO (00:17)
[2024-02-27 03:40] VITALS: BP 117/63
[2024-02-27] MEDS: PROTONIX 100 IV (06:24)
[2024-02-27 07:44] LABS: Hematocrit 26.3 % (37.0-47.0); Mean Corp Hgb Conc. 34.2 g/dL (33.0-37.0); Mean Corpuscular Hgb 33.6 pg (27.0-31.0); Mean Corpuscular Volume 98.1 fL (81.0-99.0); Mean Platelet Volume 9.7 fL (7.4-10.4); Platelet Count 206 10^3/uL (130-400); Red Blood Cell Count 2.68 10^6/uL (4.20-5.40); Red Cell Dist. Width 15.9 % (11.5-14.5)
[2024-02-27] MEDS: THIAMINE INJECTION 200 MG IV (07:55)
[2024-02-27] MEDS: VITAMIN B-12 1000 MCG PO (07:55)
[2024-02-27] MEDS: WELLBUTRIN SR (12 hour sustained release) 150 MG PO ×2 (07:55→21:30)
[2024-02-27] MEDS: WELLBUTRIN REGULAR RELEASE 75 MG PO ×2 (07:55→21:30)
[2024-02-27] MEDS: FOLVITE 1 MG PO (07:55)
[2024-02-27 07:56] VITALS: BP 135/86
[2024-02-27 08:41] LABS: Blood Urea Nitrogen 10 mg/dl (7-17); Calcium 9.2 mg/dl (8.4-10.2); Carbon Dioxide 21 mmol/L (22-30); Chloride 107 mmol/L (98-107); Estimated Creatinine Clearance 81 ml/min; Glucose 111 mg/dl (70-99); Magnesium 1.8 mg/dl (1.6-2.3); Potassium 3.5 mmol/L (3.5-5.1); Sodium 135 mmol/L (135-145); eGFR > 60.00
[2024-02-27] MEDS: OMNIPAQUE 50 ML PO (09:22)
[2024-02-27] MEDS: ZOSYN 50 IV ×3 (09:23→21:30)
--- NOTE | 2024-02-27 10:01 | W.PN.HOSP.TC ---
Today's Communication/Plan
-
Get CT A/P
Repeat Cultures
U/A with Cx
Start IV Zosyn
ID eval
Assessment / Plan
Assessment / Plan
58-year-old female came with bloody stool after she had some lobster. She denies vomiting any blood. Today she admits that she also had some dark black stools.
On examination awake alert oriented
Denies any abdominal pain
Cardiovascular system S1-S2 appreciated
Chest clear to auscultation
Abdomen soft and mild LLQ tenderness
No pedal edema
#GNR in BC
Get CT A/P
Repeat Cultures
U/A with Cx
Start IV Zosyn
ID eval
# Rectal bleeding
Has maroon Small Bleeds, better
Melena
Hold NSAIDS
EGD Gastric ulcer with no bleeding and duodenal ulcers with no bleeding
Continue Protonix
Hb Stable
PPI changed to IV
Diet changed to clears
Stool studies Cx and C diff neg. No white cells in Stool.
#Acute blood loss anemia
Status post 2 units of blood transfusion
Hb Stable
# SIRS in the setting of bloody diarrhea likely infectious in nature-Get CT
# Hypokalemia-replace potassium and magnesium PRN
# Metabolic acidosis likely secondary to diarrhea-resolved
# Acute blood loss anemia likely secondary to rectal bleeding she also has chronic anemia
Adequate iron levels
Replace low normal B12
# Hypokalemia likely secondary to GI losses
Replace potassium
Replace magnesium
# Hypertension-hold metoprolol
# Depression-continue Wellbutrin
# Arthritis and chronic back pain-patient should not be taking meloxicam and ibuprofen especially with alcohol use
# Alcohol use disorder she drinks 4 Herbert shots every day
PPI
Cessation counseling
Replace thiamine and folic acid
Stop alcohol 2 days [employer]
Watch for withdrawal symptoms MSAS protocol.
# History of pancreatitis-on pancreatic enzymes
# DVT prophylaxis SCDs
# Full code
D/W RN
Anticipated Discharge: 24 - 48 hours
Subjective/Interval History
-
Date of Service: February 27, 2024
Objective Data
-
Labs:
Laboratory Results
02/27/24
07:11
WBC 8.0
Hgb 9.0 L
Hct 26.3 L
Plt Count 206 D
Sodium 135
Potassium 3.5
Chloride 107
Carbon Dioxide 21 L
BUN 10
Creatinine 0.7
Glucose 111 H
Calcium 9.2
Vital Signs:
Vital Signs
Temp Pulse Resp BP Pulse Ox
98 F 93 16 135/86 100
02/27/24 07:56 02/27/24 07:56 02/27/24 07:56 02/27/24 07:56 02/27/24 07:56
I&O
02/26/24 02/27/24 02/28/24
06:59 06:59 06:59
Intake Total 240 / 240 1440 / 1440 480 / 480
Balance 240 / 240 1440 / 1440 480 / 480
--- NOTE | 2024-02-27 11:37 | CON.ID ---
Consultation
-
Date/Time Consultation Requested: 02/27/2024 08:56
Date/Time Consultation Performed: 02/27/2024 1112
Requesting Provider: Dr. Larios
Performing Provider: Dr. Mcpherson
Reason for Consultation: Bacteremia
Chief Complaint / Past History
History of Present Illness
Sravani Gu is a 63-year-old female being evaluated regarding bacteremia. History is obtained from chart review, along with patient interview.
Patient presented to [facility] on 02/23 with complaints of feeling generally unwell with associated diarrhea and significant nausea. She reports that this past weekend she had eaten some lobster which she had received frozen and by mail.
The following day while she was eating dinner she developed significant nausea while she was trying to eat, and then developed diarrhea which she described as 'black' and watery. She notes that the diarrhea was fairly persistent, stating that it
occurred approximately every 15 minutes. Symptoms persisted over the next several days and she ultimately presented to the emergency room on 02/24/2024. Blood cultures at that time were obtained, and now positive for gram-negative rods.
At admission she was found to have a significant leukocytosis, she was also anemic, with a hemoglobin of 6.3.
Currently she has some ongoing diarrhea. She denies any headache. She denies any chest pain or shortness of breath. She admits to prior chills, but denies any fevers.
Past History
Additional Past Medical History:
HTN
Pancreatitis
Depression
Chronic back pain
Additional Past Surgical History:
Right rotator cuff
Allergy History:
No Known Allergies Allergy (Verified 02/24/24 11:30)
Medications Reviewed: Yes
Current Antibiotics:
Zosyn
Social History
Tobacco: Non-Smoker
Alcohol: Occasional
Drug: None
Personal: Single
Living: With Family
Employment: Employed
Family History
Family History: Not Pertinent
Review of Systems
Vital Signs
Temp Pulse Resp BP Pulse Ox
98 F 93 16 135/86 100
02/27/24 07:56 02/27/24 07:56 02/27/24 07:56 02/27/24 07:56 02/27/24 07:56
Physical Exam
Physical Exam
Constitutional: No Acute Distress, Comfortable and Non-toxic
Eyes: No Conjunctival Hemorrhage and Sclera Anicteric
Oral: No Thrush and No Ulcers
Cardiovascular: S1/S2; Negative S3/S4 or Murmur
Pulmonary: Clear; Negative Wheezes, Rales or Rhonchi
Gastrointestinal: Soft, Non Tender, Non Distended, Normal Bowel Sounds and No Rebound
Genito-Urinary: Negative Peguero
Extremities: Negative Edema, Cyanosis or Erythema
Neurological: Awake and Alert
Psychological: Calm
Lab / Diagnostic Study Results
02/27/24 07:11
02/27/24 07:11
Abs Immat Gran (auto) 0.2 10^3/uL (0-0.05) H 02/24/24 11:53
Absolute Neuts (auto) 13.8 10^3/uL (1.4-6.5) H 02/24/24 11:53
Absolute Lymphs (auto) 1.1 10^3/uL (1.2-3.4) L 02/24/24 11:53
Absolute Monos (auto) 1.2 10^3/uL (0.1-0.6) H 02/24/24 11:53
Absolute Basos (auto) 0.0 10^3/uL (0-0.2) 02/24/24 11:53
Immature Gran % 0.9 % (0-0.5) H 02/24/24 11:53
Neutrophils % 84.8 % (42.2-75.2) H 02/24/24 11:53
Lymphocytes % 6.8 % (20.5-51.1) L 02/24/24 11:53
Monocytes % 7.4 % (1.7-9.3) 02/24/24 11:53
Eosinophils % 0.0 % (0-6) 02/24/24 11:53
Basophils % 0.1 % (0-2) 02/24/24 11:53
PT 13.9 Sec (11.4-14.6) 02/25/24 07:07
INR 1.07 02/25/24 07:07
Microbiology Results
Micro:
02/24/24 17:29 Blood Culture - Preliminary
Blood/Venous Positive culture in progress
Gram Stain - GNR's
02/27/24 09:26 Blood Culture - Pending
Blood/Venous
02/24/24 20:12 Blood Culture - Preliminary
Blood/Venous No Growth in 48 hours- Final report to follow
02/26/24 10:57 C. difficile GDH Antigen & Toxins - Final
Feces/Stool Negative for toxigenic C.difficile
Assessment / Plan
Bacteremia with gram-negative rods
-Source unclear, but suspect GI
Nausea/diarrhea
- ?food borne illness
Leukocytosis
Anemia
Hx pancreatitis
HTN
Hx depression
Hx Chronic back pain
Recommendations:
Continue empiric antibiotics (Zosyn).
Repeat blood cultures have been ordered and are pending.
Patient for CT of the abdomen and pelvis; will await results.
Monitor white count and temperature curve.
Monitor stool output.
[2024-02-27 12:14] LABS: Urine Albumin Negative (Neg - Trace); Urine Bilirubin Negative (Negative); Urine Character Clear (Clear); Urine Color Yellow; Urine Glucose Negative (Negative); Urine Ketone Negative (Negative); Urine Leukocyte 1+ (Negative); Urine Nitrite Negative (Negative); Urine Occult Blood Negative (Negative); Urine Specific Gravity 1.005 (<1.030); Urine Urobilinogen Negative (Neg - 1+)
[2024-02-27 12:24] LABS: Urine Red Blood Cell None Seen /HPF (0-2)
[2024-02-27 12:27] VITALS: BP 139/87
--- NOTE | 2024-02-27 12:38 | W.PN.GI.CBS2 ---
Today's Communication / Plan
-
Monitor H&H
Protonix 40 mg IV twice daily
Assessment / Plan
-
The patient is a 63-year-old female past medical history of hypertension, pancreatitis, alcohol abuse, depression, chronic back pain who presented to the emergency room with melena/black stools after eating lobster with associated n/v. She drinks
approximately 4 whiskeys a night but stopped on Thursday evening. Reported NSAID use with meloxicam and ibuprofen as well. On admission with elevated BUN out of proportion of creatinine with OB positive stools and anemia. History of peptic ulcer
disease in the past she states that she was on either cimetidine or ranitidine. Prior history of diarrhea in 2021 did not follow-up for further workup. She underwent EGD on 02/24 which revealed several nonbleeding ulcers and was advised to continue
on PPI twice daily and avoid NSAIDs. She did receive 1 unit of packed red blood cells and her hemoglobin has been stable.
02/25/2024 EGD, Dr. Colón: Z-line regular. 2 cm hiatal hernia. Congestive gastropathy. Non-bleeding gastric ulcer with a clean ulcer base (Jones Class III). Non-bleeding duodenal ulcers with a clean ulcer base (Jones Class III). Biopsies
were taken with a cold forceps for H pylori testing.
Problem list:
-Diarrhea
-Melena, burgundy stool
-macrocytic Anemia, Hgb 8.1 past 10.9 (2021)
-Stool Occult blood positive
-hx ETOH abuse, daily whisky 3-4, last use Thursday.
-Leukocytosis, resolved
-Hypokalemia, resolved
-Acidosis, resolved
Recommendations::
Hemoglobin relatively stable although patient continues to have some dark stool. Possible old blood
Continue monitor H&H
PPI IV twice daily
if Diarrhea persist will recommend stool studies
Noted to have gram-negative bacteremia. Awaiting CT abdomen/pelvis. Antibiotics as per ID
Total Time Spent with Patient (in minutes): 35
Subjective
Subjective
Date of Service: February 27, 2024
Episode of dark stool this a.m. Denies any abdominal pain/nausea/vomiting.
Objective
Data Reviewed
Laboratory Data:
Laboratory Results
02/27/24 07:11
02/27/24 07:11
Laboratory Results
PT 13.9 Sec (11.4-14.6) 02/25/24 07:07
INR 1.07 02/25/24 07:07
Magnesium 1.8 mg/dl (1.6-2.3) 02/27/24 07:11
Total Bilirubin 0.4 mg/dl (0.2-1.3) 02/24/24 11:53
AST 21 U/L (14-36) 02/24/24 11:53
ALT 12 U/L (0-35) 02/24/24 11:53
Alkaline Phosphatase 138 U/L (38-126) H 02/24/24 11:53
Lipase 67 U/L (23-300) 02/24/24 11:53
Vital Signs and I&O:
Vital Signs
Temp Pulse Resp BP Pulse Ox
97.8 F 94 16 139/87 98
02/27/24 12:27 02/27/24 12:27 02/27/24 12:27 02/27/24 12:27 02/27/24 12:27
I&O
02/26/24 02/27/24 02/28/24
06:59 06:59 06:59
Intake Total 240 / 240 1440 / 1440 480 / 480
Balance 240 / 240 1440 / 1440 480 / 480
Physical Exam
Physical Exam
GI: Soft, Non Distended and Non Tender
[2024-02-27 16:22] VITALS: BP 131/86
[2024-02-27 19:58] VITALS: BP 123/67
[2024-02-27] MEDS: NSS (PRESERVATIVE FREE) 10 ML IV (21:30)
[2024-02-27] MEDS: VITAMIN B1 100 MG PO (21:30)
[2024-02-27] MEDS: PROTONIX IV 40 MG IV (21:30)
[2024-02-27 23:59] VITALS: BP 109/67
[2024-02-28 03:20] VITALS: BP 116/67
[2024-02-28] MEDS: ZOSYN 50 IV ×4 (04:50→21:35)
[2024-02-28 07:54] LABS: Hematocrit 25.8 % (37.0-47.0); Mean Corp Hgb Conc. 34.9 g/dL (33.0-37.0); Mean Corpuscular Hgb 32.8 pg (27.0-31.0); Mean Corpuscular Volume 94.2 fL (81.0-99.0); Mean Platelet Volume 9.9 fL (7.4-10.4); Platelet Count 220 10^3/uL (130-400); Red Blood Cell Count 2.74 10^6/uL (4.20-5.40); Red Cell Dist. Width 16.1 % (11.5-14.5); White Blood Cell Count 8.2 10^3/uL (4.8-10.8)
[2024-02-28 07:56] VITALS: BP 132/72
[2024-02-28] MEDS: NSS (PRESERVATIVE FREE) 10 ML IV ×2 (07:57→19:23)
[2024-02-28] MEDS: PROTONIX IV 40 MG IV ×2 (07:57→19:23)
[2024-02-28] MEDS: VITAMIN B-12 1000 MCG PO (07:58)
[2024-02-28] MEDS: WELLBUTRIN REGULAR RELEASE 75 MG PO ×2 (07:58→19:23)
[2024-02-28] MEDS: FOLVITE 1 MG PO (07:58)
[2024-02-28] MEDS: WELLBUTRIN SR (12 hour sustained release) 150 MG PO ×2 (07:58→19:23)
[2024-02-28] MEDS: VITAMIN B1 100 MG PO ×2 (07:58→19:23)
[2024-02-28 08:19] LABS: Blood Urea Nitrogen 6 mg/dl (7-17); Calcium 9.4 mg/dl (8.4-10.2); Carbon Dioxide 18 mmol/L (22-30); Chloride 108 mmol/L (98-107); Estimated Creatinine Clearance 81 ml/min; Glucose 108 mg/dl (70-99); Magnesium 1.6 mg/dl (1.6-2.3); Potassium 3.5 mmol/L (3.5-5.1); Sodium 138 mmol/L (135-145); eGFR > 60.00
[2024-02-28 11:55] VITALS: BP 134/80
[2024-02-28] MEDS: MAGNESIUM SULFATE 102 GRAMS IV (11:55)
--- NOTE | 2024-02-28 12:09 | W.PN.GI.CBS2 ---
Today's Communication / Plan
-
Full liquid diet
continue monitor H&H
Continue antibiotics
Assessment / Plan
-
The patient is a 63-year-old female past medical history of hypertension, pancreatitis, alcohol abuse, depression, chronic back pain who presented to the emergency room with melena/black stools after eating lobster with associated n/v. She drinks
approximately 4 whiskeys a night but stopped on Thursday evening. Reported NSAID use with meloxicam and ibuprofen as well. On admission with elevated BUN out of proportion of creatinine with OB positive stools and anemia. History of peptic ulcer
disease in the past she states that she was on either cimetidine or ranitidine. Prior history of diarrhea in 2021 did not follow-up for further workup. She underwent EGD on 02/24 which revealed several nonbleeding ulcers and was advised to continue
on PPI twice daily and avoid NSAIDs. She did receive 1 unit of packed red blood cells and her hemoglobin has been stable.
02/25/2024 EGD, Dr. Colón: Z-line regular. 2 cm hiatal hernia. Congestive gastropathy. Non-bleeding gastric ulcer with a clean ulcer base (Jones Class III). Non-bleeding duodenal ulcers with a clean ulcer base (Jones Class III). Biopsies
were taken with a cold forceps for H pylori testing.
CT abdomen/pelvis with IV contrast 02/27/2024
IMPRESSION: Findings suggesting mild colitis of the splenic flexure and descending colon. New
Nonobstructing left renal stone. Stable.
Pancreatic atrophy.. Resolved previous signs of acute pancreatitis
Problem list:
-Diarrhea
-Melena, burgundy stool
-Colitis based on CT-involving splenic flexure and descending colon. Likely ischemic colitis
-macrocytic Anemia, Hgb 8.1 past 10.9 (2021)
-Stool Occult blood positive
-hx ETOH abuse, daily whisky 3-4, last use Thursday.
-Leukocytosis, resolved
Recommendations::
Hemoglobin relatively stable although patient continues to have some dark stool. old blood vs based on CT findings possible concurrent ischemic colitis
Full liquid diet today
Continue monitor H&H
Continue PPI IV twice daily
if Diarrhea persist will recommend stool studies
Noted to have gram-negative bacteremia x1. Repeat cultures negative . Continue antibiotics as per ID
If patient continues to have dark stool will consider repeating EGD with flexible sigmoidoscopy next week
Total Time Spent with Patient (in minutes): 35
Subjective
Subjective
Date of Service: February 28, 2024
Patient had a dark bowel movement this a.m
Objective
Data Reviewed
Laboratory Data:
Laboratory Results
02/28/24 07:13
02/28/24 07:13
Laboratory Results
PT 13.9 Sec (11.4-14.6) 02/25/24 07:07
INR 1.07 02/25/24 07:07
Magnesium 1.6 mg/dl (1.6-2.3) 02/28/24 07:13
Total Bilirubin 0.4 mg/dl (0.2-1.3) 02/24/24 11:53
AST 21 U/L (14-36) 02/24/24 11:53
ALT 12 U/L (0-35) 02/24/24 11:53
Alkaline Phosphatase 138 U/L (38-126) H 02/24/24 11:53
Lipase 67 U/L (23-300) 02/24/24 11:53
Vital Signs and I&O:
Vital Signs
Temp Pulse Resp BP Pulse Ox
98.4 F 92 18 134/80 98
02/28/24 11:55 02/28/24 11:55 02/28/24 11:55 02/28/24 11:55 02/28/24 11:55
I&O
02/27/24 02/28/24 02/29/24
06:59 06:59 06:59
Intake Total 1440 / 1440 1180 / 1180 240 / 240
Balance 1440 / 1440 1180 / 1180 240 / 240
Physical Exam
Physical Exam
GI: Soft, Non Distended and Non Tender
--- NOTE | 2024-02-28 14:14 | W.PN.HOSP.TC ---
Today's Communication/Plan
-
Diet advanced to full liquid diet
Continue antibiotics and wait for final cultures
Patient reports dark bowel movements-monitor hemoglobin
Assessment / Plan
Assessment / Plan
58-year-old female came with bloody stool after she had some lobster. She denies vomiting any blood. Today she admits that she also had some dark black stools.
On examination awake alert oriented
Denies any abdominal pain
Cardiovascular system S1-S2 appreciated
Chest clear to auscultation
Abdomen soft and mild LLQ tenderness
No pedal edema
#GNR in BC
CT A/P-mild colitis of the splenic flexure of the descending colon. Nonobstructing left renal stone. Pancreatic atrophy
Repeat Cultures pending
Was unremarkable for infection
Started IV Zosyn
ID eval appreciated
# Rectal bleeding
Has maroon Small Bleeds, better, dark bowel movement still persistent
Melena on admission
Hold NSAIDS
EGD Gastric ulcer with no bleeding and duodenal ulcers with no bleeding
Continue Protonix
Hb Stable
PPI
Diet to be advanced to low residue
Stool studies Cx and C diff neg. No white cells in Stool.
#Acute blood loss anemia
Status post 2 units of blood transfusion
Hb Stable
# SIRS in the setting of bloody diarrhea likely infectious in nature-Get CT
# Hypokalemia-replace potassium and magnesium PRN
# Metabolic acidosis likely secondary to diarrhea-resolved
# Acute blood loss anemia likely secondary to rectal bleeding she also has chronic anemia
Adequate iron levels
Replace low normal B12
# Hypokalemia likely secondary to GI losses
Replace potassium
Replace magnesium
# Hypertension-hold metoprolol
# Depression-continue Wellbutrin
# Arthritis and chronic back pain-patient should not be taking meloxicam and ibuprofen especially with alcohol use
# Alcohol use disorder she drinks 4 Herbert shots every day
PPI
Cessation counseling
Replace thiamine and folic acid
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
Watch for withdrawal symptoms MSAS protocol.
# History of pancreatitis-on pancreatic enzymes
# DVT prophylaxis SCDs
# Full code
D/W RN
Discussed with GI
Discussed with son at bedside
Anticipated Discharge: 24 - 48 hours
Subjective/Interval History
-
Date of Service: February 28, 2024
Objective Data
-
Labs:
Laboratory Results
02/28/24
07:13
WBC 8.2
Hgb 9.0 L
Hct 25.8 L
Plt Count 220
Sodium 138
Potassium 3.5
Chloride 108 H
Carbon Dioxide 18 L
BUN 6 L
Creatinine 0.7
Glucose 108 H
Calcium 9.4
Vital Signs:
Vital Signs
Temp Pulse Resp BP Pulse Ox
98.4 F 92 18 134/80 98
02/28/24 11:55 02/28/24 11:55 02/28/24 11:55 02/28/24 11:55 02/28/24 11:55
I&O
02/27/24 02/28/24 02/29/24
06:59 06:59 06:59
Intake Total 1440 / 1440 1180 / 1180 240 / 240
Balance 1440 / 1440 1180 / 1180 240 / 240
--- NOTE | 2024-02-28 14:54 | W.PN.ID1 ---
Date of Service
Date of Service: February 28, 2024
Today's Communication
Continue abx.
Assessment / Plan
Bacteremia with gram-negative rods
- Source unclear, but suspect GI
Nausea/diarrhea
- ?food borne illness
Leukocytosis
Anemia
Hx pancreatitis
HTN
Hx depression
Hx Chronic back pain
Recommendations:
Continue empiric antibiotics (Zosyn).
Repeat blood cultures have been ordered and are pending.
Monitor white count and temperature curve.
Monitor stool output / consistancy.
Chief Complaint
-: Bacteremia
Subjective / Review of Systems
Review of Systems: No Fever, No Chills and Diarrhea
Vital Signs / Physical Exam
Vital Signs
Vital Signs
Temp Pulse Resp BP Pulse Ox
98.4 F 92 18 134/80 98
02/28/24 11:55 02/28/24 11:55 02/28/24 11:55 02/28/24 11:55 02/28/24 11:55
Physical Exam
Constitutional: No Acute Distress, Comfortable and Non-toxic
Eyes: Sclera Anicteric
Pulmonary: Non Labored
Gastrointestinal: Non Distended
Neurological: Awake and Alert
Psychological: Calm
Objective Data
Lab Data
Lab Results
02/28/24 07:13
02/28/24 07:13
PT 13.9 Sec (11.4-14.6) 02/25/24 07:07
INR 1.07 02/25/24 07:07
Estimated Creat Clear 81 ml/min 02/28/24 07:13
Total Bilirubin 0.4 mg/dl (0.2-1.3) 02/24/24 11:53
AST 21 U/L (14-36) 02/24/24 11:53
ALT 12 U/L (0-35) 02/24/24 11:53
Alkaline Phosphatase 138 U/L (38-126) H 02/24/24 11:53
Most recent labs reviewed.
Micro Results:
02/24/24 17:29 Blood Culture - Preliminary
Blood/Venous Positive culture in progress
Gram Stain - Preliminary
02/27/24 12:05 Urine Culture - Final
Urine NO GROWTH
02/27/24 09:26 Blood Culture - Preliminary
Blood/Venous No Growth in 24 hours- Final report to follow
02/28/24 06:30 Salmonella/Shigella Culture - Pending
Feces/Stool Campylobacter Culture - Pending
Shiga Toxin Test - Pending
02/24/24 20:12 Blood Culture - Preliminary
Blood/Venous No Growth in 72 hours- Final report to follow
02/26/24 10:57 C. difficile GDH Antigen & Toxins - Final
Feces/Stool Negative for toxigenic C.difficile
Imaging:
02/27/2024 CT abdomen/pelvis: Findings suggesting mild colitis of the splenic flexure and descending colon. New Nonobstructing left renal stone. Stable. Pancreatic atrophy.. Resolved previous signs of acute pancreatitis
[2024-02-28 15:54] VITALS: BP 136/84
[2024-02-28 23:00] VITALS: BP 128/77
[2024-02-29] MEDS: ZOSYN 50 IV ×2 (04:40→10:20)
[2024-02-29 06:16] LABS: Hematocrit 25.4 % (37.0-47.0); Hemoglobin 8.6 g/dL (12.0-16.0); Mean Corp Hgb Conc. 33.9 g/dL (33.0-37.0); Mean Corpuscular Hgb 33.3 pg (27.0-31.0); Mean Corpuscular Volume 98.4 fL (81.0-99.0); Mean Platelet Volume 9.7 fL (7.4-10.4); Platelet Count 223 10^3/uL (130-400); Red Blood Cell Count 2.58 10^6/uL (4.20-5.40); Red Cell Dist. Width 15.8 % (11.5-14.5); White Blood Cell Count 6.9 10^3/uL (4.8-10.8)
[2024-02-29 06:26] LABS: Blood Urea Nitrogen 5 mg/dl (7-17); Calcium 9.3 mg/dl (8.4-10.2); Carbon Dioxide 23 mmol/L (22-30); Chloride 108 mmol/L (98-107); Estimated Creatinine Clearance 71 ml/min; Glucose 113 mg/dl (70-99); Magnesium 1.6 mg/dl (1.6-2.3); Potassium 3.2 mmol/L (3.5-5.1); Sodium 141 mmol/L (135-145); eGFR > 60.00
[2024-02-29 06:31] VITALS: BMI 21.8
[2024-02-29 07:00] VITALS: BP 137/84
[2024-02-29] MEDS: NSS (PRESERVATIVE FREE) 10 ML IV ×2 (07:29→21:05)
[2024-02-29] MEDS: PROTONIX IV 40 MG IV ×2 (07:29→21:05)
[2024-02-29] MEDS: WELLBUTRIN SR (12 hour sustained release) 150 MG PO ×2 (07:29→21:06)
[2024-02-29] MEDS: WELLBUTRIN REGULAR RELEASE 75 MG PO ×2 (07:29→21:06)
[2024-02-29] MEDS: VITAMIN B1 100 MG PO ×2 (07:29→21:06)
[2024-02-29] MEDS: FOLVITE 1 MG PO (07:29)
[2024-02-29] MEDS: VITAMIN B-12 1000 MCG PO (07:29)
--- NOTE | 2024-02-29 10:22 | W.PN.HOSP.TC ---
Today's Communication/Plan
-
.
Assessment / Plan
Assessment / Plan
58-year-old female came with bloody stool after she had some lobster. She denies vomiting any blood. Today she admits that she also had some dark black stools.
Physical Exam
General: Well Developed, Well Nourished, Respiratory Distress and Obese
HEENT: Normocephalic, Moist mucous membranes, Atraumatic, PERRLA and Oxygen
Respiratory: Crackles (faint bibasilar crackles)
Cardiac: S1/S2 and Tachycardia
GI: Soft, Non Tender, Non Distended and Normal Bowel Sounds
Rectal: No rectal bleeding
Genito-urinary: Clear Urine
Musculoskeletal: No Clubbing, No Cyanosis and No Edema
Skin: Warm and Dry
Neuro: AO x 3
Hematologic/Lymphatic: No Lymphadenopathy
Psych: Calm
#GNR in BC
CT A/P-mild colitis of the splenic flexure of the descending colon. Nonobstructing left renal stone. Pancreatic atrophy
Repeat Cultures pending
Was unremarkable for infection
Started IV Zosyn
ID eval appreciated
#Acute blood loss anemia due to GI bleeding/ terry
Persistent malen, seems to continue although frequency is less. NO abd pain or discomfort
Melena on admission
No NSAIDS
EGD Gastric ulcer with no bleeding and duodenal ulcers with no bleeding. I reached out to GI doctor, will repeat EGD, make pt NPO
Continue Protonix
PPI
Diet to be advanced to low residue
Stool studies Cx and C diff neg. No white cells in Stool.
Appreciate GI help
#Acute blood loss anemia
Status post 2 units of blood transfusion
Hb Stable
#Bacteremia with gram-negative rods, Suspect GI source
WIth positive blood culture, S& S c/w sepsis POA and not only SIRS. Repeat blood cultures 02/26 No growth. Urine culture NO growth.
# Hypokalemia-replace potassium and magnesium PRN
# Metabolic acidosis likely secondary to diarrhea-resolved
# Acute blood loss anemia likely secondary to rectal bleeding she also has chronic anemia
Adequate iron levels
Replace low normal B12
# Hypokalemia likely secondary to GI losses
Replace potassium
Replace magnesium
# Primary Hypertension-hold metoprolol
# Depression-continue Wellbutrin
# Arthritis and chronic back pain-patient should not be taking meloxicam and ibuprofen especially with alcohol use
# Alcohol use disorder she drinks 4 Herbert shots every day
PPI
Cessation counseling
Replace thiamine and folic acid
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
No signs of withdrawal symptoms. MSAS protocol.
# History of pancreatitis-on pancreatic enzymes
# DVT prophylaxis SCDs
# Full code
Total time spent to see the patient, examine the patient on the floor, review data and lab results, discuss treatment plan with patient and nursing staff around 55 minutes
Anticipated Discharge: > 48 hours
Subjective/Interval History
-
Date of Service: February 29, 2024
Still having black/burgundy stool, no abd pain
No chest pain, no sob
Objective Data
-
Labs:
Laboratory Results
02/29/24
05:47
WBC 6.9
Hgb 8.6 L
Hct 25.4 L
Plt Count 223
Sodium 141
Potassium 3.2 L
Chloride 108 H
Carbon Dioxide 23
BUN 5 L
Creatinine 0.8
Glucose 113 H
Calcium 9.3
Vital Signs:
Vital Signs
Temp Pulse Resp BP Pulse Ox
98.4 F 93 18 137/84 99
02/29/24 07:00 02/29/24 07:00 02/29/24 07:00 02/29/24 07:00 02/29/24 07:00
I&O
02/28/24 02/29/24 03/01/24
06:59 06:59 06:59
Intake Total 1180 / 1180 630 / 630
Balance 1180 / 1180 630 / 630
[2024-02-29] MEDS: KCL 270 MEQ IV (10:58)
--- NOTE | 2024-02-29 12:42 | W.PN.ID1 ---
Date of Service
Date of Service: February 29, 2024
Today's Communication
Transition to oral metronidazole.
Assessment / Plan
Bacteremia with gram-negative rods
- Source unclear, but suspect GI. Isolate is an anaerobe; identification pending.
Nausea/diarrhea
- ?food borne illness
Leukocytosis
Anemia
Hx pancreatitis
HTN
Hx depression
Hx Chronic back pain
Recommendations:
Repeat blood cultures no growth thus far.
Transition to metronidazole to complete an additional 7 days of therapy.
Monitor white count and temperature curve.
Monitor stool output / consistency.
Chief Complaint
-: Bacteremia
Subjective / Review of Systems
Review of Systems: No Fever and No Chills
Vital Signs / Physical Exam
Vital Signs
Vital Signs
Temp Pulse Resp BP Pulse Ox
98.4 F 93 18 137/84 99
02/29/24 07:00 02/29/24 07:00 02/29/24 07:00 02/29/24 07:00 02/29/24 07:00
Physical Exam
Constitutional: No Acute Distress, Comfortable and Non-toxic
Eyes: Sclera Anicteric
Pulmonary: Non Labored
Gastrointestinal: Non Distended
Neurological: Awake and Alert
Psychological: Calm
Objective Data
Lab Data
Lab Results
02/29/24 05:47
02/29/24 05:47
PT 13.9 Sec (11.4-14.6) 02/25/24 07:07
INR 1.07 02/25/24 07:07
Estimated Creat Clear 71 ml/min 02/29/24 05:47
Total Bilirubin 0.4 mg/dl (0.2-1.3) 02/24/24 11:53
AST 21 U/L (14-36) 02/24/24 11:53
ALT 12 U/L (0-35) 02/24/24 11:53
Alkaline Phosphatase 138 U/L (38-126) H 02/24/24 11:53
Most recent labs reviewed.
Micro Results:
02/24/24 17:29 Blood Culture - Preliminary
Blood/Venous Anaerobic gram neg bacilli
Gram Stain - Preliminary
02/28/24 06:30 Salmonella/Shigella Culture - Preliminary
Feces/Stool Culture in Progress
Campylobacter Culture - Preliminary
Culture in Progress
Shiga Toxin Test - Final
No E. coli Shiga Toxin 1 or 2 detected.
02/27/24 09:26 Blood Culture - Preliminary
Blood/Venous No Growth in 48 hours- Final report to follow
02/24/24 20:12 Blood Culture - Preliminary
Blood/Venous No Growth in 4 days- Final report to follow
02/27/24 12:05 Urine Culture - Final
Urine NO GROWTH
02/26/24 10:57 C. difficile GDH Antigen & Toxins - Final
Feces/Stool Negative for toxigenic C.difficile
Imaging:
02/27/2024 CT abdomen/pelvis: Findings suggesting mild colitis of the splenic flexure and descending colon. New Nonobstructing left renal stone. Stable. Pancreatic atrophy.. Resolved previous signs of acute pancreatitis
[2024-02-29 15:00] VITALS: BP 136/80
--- NOTE | 2024-02-29 15:23 | CM ---
Case management following for d/c planning
Chart reviewed.
Transitioning to PO meds. Advancing diet as tolerated
CM will cont to follow for d/c needs
Plan - anticipate home no needs
[2024-02-29] MEDS: FLAGYL 500 MG PO ×2 (16:49→23:51)
--- NOTE | 2024-02-29 21:56 | VATNOTE ---
Noticed left forearm phlebitis that had been marked on 02/26.Markings difficult to discern now. Area red and warm to touch 2 days after IV removed. Pt. stated it was still sore, hadn't gotten worse and a little improved. Ice applied. Mentioned to
[facility] that site should be checked by in am.
VAT to follow.
[2024-02-29 23:00] VITALS: BP 135/82
[2024-03-01 07:00] VITALS: BP 133/79
[2024-03-01 07:02] VITALS: BMI 21.5
[2024-03-01] MEDS: WELLBUTRIN REGULAR RELEASE 75 MG PO ×2 (08:41→20:11)
[2024-03-01] MEDS: VITAMIN B1 100 MG PO ×2 (08:41→20:11)
[2024-03-01] MEDS: WELLBUTRIN SR (12 hour sustained release) 150 MG PO ×2 (08:41→20:11)
[2024-03-01] MEDS: VITAMIN B-12 1000 MCG PO (08:41)
[2024-03-01] MEDS: FLAGYL 500 MG PO ×3 (08:41→22:48)
[2024-03-01] MEDS: FOLVITE 1 MG PO (08:41)
[2024-03-01] MEDS: PROTONIX IV 40 MG IV (08:43)
[2024-03-01] MEDS: NSS (PRESERVATIVE FREE) 10 ML IV (08:43)
--- NOTE | 2024-03-01 09:15 | VATNOTE ---
Left arm reported phlebitis decreasing in size and inflammation, will continue to monitor
--- NOTE | 2024-03-01 09:41 | W.PN.HOSP.TC ---
Addendum entered and electronically signed by Lia Love MD 03/01/24 13:31:
Addendum
CTA negative for active bleeding, colitis and mild interval improvement
HGB stable and higher than yesterday
Apparently, pt was taking OTC pancreatic enzymes for known pancreatic disease
CT showed pancreatic calcifications , c/w previous bout of pancreatitis when she drank heavily in the past
REctal black stools c/w residual bleed and bloody stool from colitis. frequent sool due to pancreatic disease and not taking her enzymes
Place back on pancreatic enzymes
D/W pt and GI
Original Note:
Today's Communication/Plan
-
Stat blood work
Stat CT Angio
Re-consult GI doctor
Assessment / Plan
Assessment / Plan
58-year-old female came with bloody stool after she had some lobster. She denies vomiting any blood. Today she admits that she also had some dark black stools.
Physical Exam
General: Well Developed, Well Nourished, Respiratory Distress and Obese
HEENT: Normocephalic, Moist mucous membranes, Atraumatic, PERRLA and Oxygen
Respiratory: Crackles (faint bibasilar crackles)
Cardiac: S1/S2 and Tachycardia
GI: Soft, Non Tender, Non Distended and Normal Bowel Sounds
Rectal: No rectal bleeding
Genito-urinary: Clear Urine
Musculoskeletal: No Clubbing, No Cyanosis and No Edema
Skin: Warm and Dry
Neuro: AO x 3
Hematologic/Lymphatic: No Lymphadenopathy
Psych: Calm
#GNR in BC
#Bacteremia with gram-negative rods, Suspect GI source
WIth positive blood culture, S& S c/w sepsis POA and not only SIRS. Repeat blood cultures 02/26 No growth. Urine culture NO growth.
CT A/P-mild colitis of the splenic flexure of the descending colon. Nonobstructing left renal stone. Pancreatic atrophy
Repeat Culture is nGTD
Started IV Zosyn
ID eval appreciated
#Acute blood loss anemia due to GI bleeding/ melena
Persistent malen, seems to continue, more frequency after resuming diet. No abd pain or discomfort
Status post flexible sigmoidoscopy 02/28 showed internal hemorrhoids. Upper endoscopy 02/28 showed small hiatal hernia/nonbleeding gastric ulcer/duodenal ulcers with no stigmata of bleeding,
Will do stat CT angiogram.
Continue Protonix
Hold Diet for now
STat H&H
Stool studies Cx and C diff neg. No white cells in Stool.
Appreciate GI help
#Acute blood loss anemia
Status post 2 units of blood transfusion
Hb Stable
# Hypokalemia-replace potassium and magnesium PRN
# Metabolic acidosis likely secondary to diarrhea-resolved
# Acute blood loss anemia likely secondary to rectal bleeding she also has chronic anemia
Adequate iron levels
Replace low normal B12
# Hypokalemia likely secondary to GI losses
Replace potassium
Replace magnesium
# Primary Hypertension-hold metoprolol
# Depression-continue Wellbutrin
# Arthritis and chronic back pain-patient should not be taking meloxicam and ibuprofen especially with alcohol use
# Alcohol use disorder she drinks 4 Herbert shots every day
PPI
Cessation counseling
Replace thiamine and folic acid
Stopped alcohol 2 days [employer] [facility]
No signs of withdrawal symptoms. MSAS protocol.
# History of pancreatitis-on pancreatic enzymes
# DVT prophylaxis SCDs
# Full code
Total time spent to see the patient, examine the patient on the floor, review data and lab results, discuss treatment plan with patient, GI doctor and nursing staff around 57 minutes
Anticipated Discharge: > 48 hours
Subjective/Interval History
-
Date of Service: March 01, 2024
She is having more frequent burgundy stools
No abd pain
No nausea
Objective Data
-
Vital Signs:
Vital Signs
Temp Pulse Resp BP Pulse Ox
98.7 F 97 16 133/79 98
03/01/24 07:00 03/01/24 07:00 03/01/24 07:00 03/01/24 07:00 03/01/24 07:00
I&O
02/29/24 03/01/24 03/02/24
06:59 06:59 06:59
Intake Total 630 / 630 640 / 640
Balance 630 / 630 640 / 640
[2024-03-01 11:24] LABS: Hemoglobin 9.4 g/dL (12.0-16.0)
--- NOTE | 2024-03-01 11:25 | W.PN.GI.CBS2 ---
Addendum entered and electronically signed by Margaret Colón DO 03/01/24 16:12:
I saw and examined the patient.
The FACILITY MAINTENANCE WORKER or PA's note was reviewed and I agree with the note.
Comment: Hemoglobin remains stable, BUN normalized. She now admits to taking pancreatic enzymes regularly, unclear who/when this was prescribed. Findings on imaging are certainly suggestive for chronic pancreatitis (pancreatic calcifications) as
well as chronic splenic vein thrombosis and gastric varices. She did not have any evidence of gastric varices on EGD x2 in the last few days. This is a complication of pancreatitis.
There is no use in checking her fecal elastase or fecal fat at this time. She has evidence of colitis on imaging, and diarrhea could be 2/2 infectious colitis. She also had bacteremia which has now cleared, Bcx positive for fusobacterium. Repeat Bcx
are negative. She had a colonoscopy in [address] Busby.
If hemoglobin is stable tomorrow morning, okay for discharge from a GI perspective with outpatient follow-up in our office to discuss further management of multiple GI issues- PUD, pancreatitis c/b SVT and gastric varices, pancreatic insufficiency
and colitis.
Addendum entered and electronically signed by ROMMEL Ng 03/01/24 12:13:
after further review with patient she has known history of pancreatic insufficiency and has been off pancreatic enzymes. Will hold elastase check and questran but restart pancreatic enzymes.
Original Note:
Today's Communication / Plan
-
patients main complaint is loose frequent stools may be related to colitis as seen on CT vs abx vs other-- less likely recurrent bleeding
CTA this am neg for bleeding
stool studies neg
stools are brown with some form and heme +
BUN marked improvement down to 3, hbg stable 9.4
ok to resume low residue, low lactose diet
will give one dose questran to see if helps
change PPI to PO
add fecal elastase
Assessment / Plan
-
The patient is a 63-year-old female past medical history of hypertension, pancreatitis, alcohol abuse, depression, chronic back pain who presented to the emergency room with melena/black stools after eating lobster with associated n/v. She drinks
approximately 4 whiskeys a night but stopped on Thursday evening. Reported NSAID use with meloxicam and ibuprofen as well. On admission with elevated BUN out of proportion of creatinine with OB positive stools and anemia. History of peptic ulcer
disease in the past she states that she was on either cimetidine or ranitidine. Prior history of diarrhea in 2021 did not follow-up for further workup.
02/25/2024 EGD, Dr. Colón: Z-line regular. 2 cm hiatal hernia. Congestive gastropathy. Non-bleeding gastric ulcer with a clean ulcer base (Jones Class III). Non-bleeding duodenal ulcers with a clean ulcer base (Jones Class III). Biopsies
were taken with a cold forceps for H pylori testing.
02/27/2024 CT abdomen/pelvis with IV contrast Findings suggesting mild colitis of the splenic flexure and descending colon. New Nonobstructing left renal stone. Stable. Pancreatic atrophy.. Resolved previous signs of acute pancreatitis
02/29/24 - EGD - Veronika-- Small hiatal hernia. non bleeding gastric ulcers no stigmata, non bleeding DU no stigmata, normal 2nd portion of duodenum, no active GI Bleed
02/29/24- flex - Preparation of the colon was inadequate. non bleeding hemorrhoids, brown stool in sigmoid colon no active L GI Bleed
03/01/24- CT A/p angio There is residual GI luminal contrast agent from CT scan of February 27, 2024. This limits evaluation for contrast extravasation. Given this limitation, there is no evidence for active GI bleeding. This appears slightly improved
from examination of February 27, [address] findings suggesting chronic splenic vein thrombosis and resultant varices in the left upper quadrant. pancreatic calcifications small b/l nephroliths
Problem list:
-Diarrhea
-Melena, burgundy stool - improving
-Colitis based on CT-involving splenic flexure and descending colon. Likely ischemic colitis-- hx colonoscopy [address] Busby normal
-gram neg bacilli
-macrocytic Anemia, Hgb 8.1 past 10.9 (2021)
-Stool Occult blood positive
-hx ETOH abuse, daily whisky 3-4, last use Thursday .
-Leukocytosis, resolved
-CT with pancreatic calcification
-CT with chronic splenic vein thrombosis
Recommendations::
patients main complaint is loose frequent stools may be related to colitis as seen on CT vs abx vs other-- less likely recurrent bleeding
CTA this am neg for bleeding
stool studies neg
stools are brown with some form and heme +
BUN marked improvement down to 3, hbg stable 9.4
ok to resume low residue, low lactose diet
will give one dose questran to see if helps
change PPI to PO
add fecal elastase
Subjective
Subjective
Date of Service: March 01, 2024
initially with black stools now with brown but loose frequent stools and urgency
Objective
Data Reviewed
Laboratory Data:
Laboratory Results
03/01/24 11:07
Laboratory Results
PT 13.9 Sec (11.4-14.6) 02/25/24 07:07
INR 1.07 02/25/24 07:07
Magnesium 1.6 mg/dl (1.6-2.3) 02/29/24 05:47
Total Bilirubin 0.4 mg/dl (0.2-1.3) 02/24/24 11:53
AST 21 U/L (14-36) 02/24/24 11:53
ALT 12 U/L (0-35) 02/24/24 11:53
Alkaline Phosphatase 138 U/L (38-126) H 02/24/24 11:53
Lipase 67 U/L (23-300) 02/24/24 11:53
Vital Signs and I&O:
Vital Signs
Temp Pulse Resp BP Pulse Ox
98.7 F 97 16 133/79 100
05/14/24 07:00 03/01/24 07:00 03/01/24 07:00 03/01/24 07:00 03/01/24 10:47
I&O
02/29/24 03/01/24 03/02/24
06:59 06:59 06:59
Intake Total 630 / 630 640 / 640
Balance 630 / 630 640 / 640
Physical Exam
Physical Exam
HEENT: Anicteric and Moist mucous membranes
Cardiology: Normal Sinus Rhythm
Pulmonary: Clear
GI: Soft and Non Distended
Extremities: No Edema
Neuro: Non Focal
[2024-03-01 11:43] LABS: Blood Urea Nitrogen 3 mg/dl (7-17); Calcium 9.5 mg/dl (8.4-10.2); Carbon Dioxide 23 mmol/L (22-30); Chloride 105 mmol/L (98-107); Estimated Creatinine Clearance 81 ml/min; Glucose 94 mg/dl (70-99); Potassium 3.3 mmol/L (3.5-5.1); Sodium 137 mmol/L (135-145); eGFR > 60.00
[2024-03-01] MEDS: ZENPEP DELAYED RELEASE CAPSULE 3 CAPSULE PO ×2 (15:39→22:46)
--- NOTE | 2024-03-01 16:01 | W.PN.ID1 ---
Date of Service
Date of Service: March 01, 2024
Today's Communication
Continue metronidazole
Assessment / Plan
Bacteremia with Fusobacterium
- Source unclear, but suspect GI.
Nausea/diarrhea
- improved
Leukocytosis
Anemia
Hx pancreatitis
HTN
Hx depression
Hx Chronic back pain
Recommendations:
Continue current course of metronidazole to complete an additional 6 days of therapy.
Monitor white count and temperature curve.
Monitor stool output / consistency.
Chief Complaint
-: Bacteremia
Subjective / Review of Systems
Review of Systems: No Fever and No Chills
Vital Signs / Physical Exam
Vital Signs
Vital Signs
Temp Pulse Resp BP Pulse Ox
98.7 F 97 16 133/79 100
03/01/24 07:00 03/01/24 07:00 03/01/24 07:00 03/01/24 07:00 03/01/24 10:47
Physical Exam
Constitutional: No Acute Distress, Comfortable and Non-toxic
Eyes: Sclera Anicteric
Pulmonary: Non Labored
Gastrointestinal: Non Distended
Neurological: Awake and Alert
Psychological: Calm
Objective Data
Lab Data
Lab Results
03/01/24 11:07
03/01/24 11:07
PT 13.9 Sec (11.4-14.6) 02/25/24 07:07
INR 1.07 02/25/24 07:07
Estimated Creat Clear 81 ml/min 03/01/24 11:07
Total Bilirubin 0.4 mg/dl (0.2-1.3) 02/24/24 11:53
AST 21 U/L (14-36) 02/24/24 11:53
ALT 12 U/L (0-35) 02/24/24 11:53
Alkaline Phosphatase 138 U/L (38-126) H 02/24/24 11:53
Most recent labs reviewed.
Micro Results:
02/24/24 17:29 Blood Culture - Preliminary
Blood/Venous Fusobacterium species
Gram Stain - Preliminary
02/27/24 09:26 Blood Culture - Preliminary
Blood/Venous No Growth in 72 hours- Final report to follow
02/28/24 06:30 Salmonella/Shigella Culture - Final
Feces/Stool No Salmonella, Shigella, Aeromonas or Plesiomonas species
isolated.
Campylobacter Culture - Final
No Campylobacter species isolated.
Shiga Toxin Test - Final
No E. coli Shiga Toxin 1 or 2 detected.
02/24/24 20:12 Blood Culture - Final
Blood/Venous No Growth - Final Report
02/27/24 12:05 Urine Culture - Final
Urine NO GROWTH
02/26/24 10:57 C. difficile GDH Antigen & Toxins - Final
Feces/Stool Negative for toxigenic C.difficile
Imaging:
02/27/2024 CT abdomen/pelvis: Findings suggesting mild colitis of the splenic flexure and descending colon. New Nonobstructing left renal stone. Stable. Pancreatic atrophy.. Resolved previous signs of acute pancreatitis
[2024-03-01] MEDS: PROTONIX 40 MG PO (20:11)
[2024-03-01] MEDS: KCL 20 MEQ PO (20:11)
[2024-03-01 23:20] VITALS: BP 125/65
--- NOTE | 2024-03-02 03:13 | DOWNTIME ---
There was a [employer] Client Accounts Receivable Specialist Downtime on 03/01/2024 from 0100 to 03/02/2024 at 0300. Downtime documentation of patient's care, including medication administrations, has been reconciled in the electronic record per guidelines. Refer to the
patient's paper chart under the miscellaneous tab to see printed paper medication records and downtime forms.
[2024-03-02 06:05] LABS: Hematocrit 25.5 % (37.0-47.0); Hemoglobin 8.6 g/dL (12.0-16.0); Mean Corp Hgb Conc. 33.7 g/dL (33.0-37.0); Mean Corpuscular Hgb 32.8 pg (27.0-31.0); Mean Corpuscular Volume 97.3 fL (81.0-99.0); Mean Platelet Volume 9.4 fL (7.4-10.4); Platelet Count 271 10^3/uL (130-400); Red Blood Cell Count 2.62 10^6/uL (4.20-5.40); Red Cell Dist. Width 15.1 % (11.5-14.5); White Blood Cell Count 6.6 10^3/uL (4.8-10.8)
[2024-03-02] MEDS: TYLENOL 650 MG PO (06:10)
[2024-03-02 06:15] VITALS: BMI 21.3
[2024-03-02 06:29] LABS: ALT (SGPT) 12 U/L (0-35); AST (SGOT) 19 U/L (14-36); Albumin 2.7 g/dl (3.5-5.0); Alkaline Phosphatase 63 U/L (38-126); Blood Urea Nitrogen 4 mg/dl (7-17); Calcium 8.9 mg/dl (8.4-10.2); Carbon Dioxide 23 mmol/L (22-30); Chloride 109 mmol/L (98-107); Estimated Creatinine Clearance 70 ml/min; Glucose 96 mg/dl (70-99); Potassium 3.7 mmol/L (3.5-5.1); Sodium 138 mmol/L (135-145); Total Bilirubin 0.2 mg/dl (0.2-1.3); eGFR > 60.00
[2024-03-02 07:00] VITALS: BP 134/81
[2024-03-02] MEDS: PROTONIX 40 MG PO ×2 (07:55→21:00)
[2024-03-02] MEDS: VITAMIN B-12 1000 MCG PO (07:56)
[2024-03-02] MEDS: WELLBUTRIN REGULAR RELEASE 75 MG PO ×2 (07:56→21:07)
[2024-03-02] MEDS: VITAMIN B1 100 MG PO ×2 (07:56→21:00)
[2024-03-02] MEDS: FLAGYL 500 MG PO ×2 (07:56→15:39)
[2024-03-02] MEDS: WELLBUTRIN SR (12 hour sustained release) 150 MG PO ×2 (07:56→21:01)
[2024-03-02] MEDS: FOLVITE 1 MG PO (07:56)
[2024-03-02] MEDS: KCL 20 MEQ PO ×2 (07:56→20:59)
[2024-03-02] MEDS: ZENPEP DELAYED RELEASE CAPSULE 3 CAPSULE PO ×4 (07:57→21:06)
--- NOTE | 2024-03-02 09:00 | VATNOTE ---
Reported left arm phlebitis with 3cm cord and pink. Patient states it is feeling better. Will continue to monitor
--- NOTE | 2024-03-02 11:00 | W.PN.HOSP.TC ---
Today's Communication/Plan
-
dc in am
Assessment / Plan
Assessment / Plan
58-year-old female came with bloody stool after she had some lobster. She denies vomiting any blood. Today she admits that she also had some dark black stools.
Physical Exam
General: Well Developed, Well Nourished, Respiratory Distress and Obese
HEENT: Normocephalic, Moist mucous membranes, Atraumatic, PERRLA and Oxygen
Respiratory: Crackles (faint bibasilar crackles)
Cardiac: S1/S2 and Tachycardia
GI: Soft, Non Tender, Non Distended and Normal Bowel Sounds
Rectal: No rectal bleeding
Genito-urinary: Clear Urine
Musculoskeletal: No Clubbing, No Cyanosis and No Edema
Skin: Warm and Dry
Neuro: AO x 3
Hematologic/Lymphatic: No Lymphadenopathy
Psych: Calm
#GNR in BC
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
WIth positive blood culture, S& S c/w sepsis POA and not only SIRS. Repeat blood cultures 02/26 No growth. Urine culture NO growth.
CT A/P-mild colitis of the splenic flexure of the descending colon. Nonobstructing left renal stone. Pancreatic atrophy
Repeat Culture is No growth.
s/p IV Zosyn, now on Metronidazole ( total 10 days), she seems to tolerate it.
ID eval appreciated
#Acute blood loss anemia due to GI bleeding- colitis/ melena
less bloody stools. Her diarrhea seemed to be c/w hx of pancreatic insufficiency( she stopped taking her pancreatic enzymes) and colitis. No abd pain or discomfort
Status post flexible sigmoidoscopy 02/28 showed internal hemorrhoids. Upper endoscopy 02/28 showed small hiatal hernia/nonbleeding gastric ulcer/duodenal ulcers with no stigmata of bleeding,
CTA of abdomen and pelvis no active bleeding.
Continue Protonix
c/w diet
started back on pancreatic enzymes.
HGB relatively stable 8-9
Stool studies Cx and C diff neg. No white cells in Stool.
Appreciate GI help
#Acute blood loss anemia
Status post 2 units of blood transfusion
HGB relatively stable
# Hypokalemia-replace potassium and magnesium PRN
# Metabolic acidosis likely secondary to diarrhea-resolved
# Acute blood loss anemia likely secondary to rectal bleeding she also has chronic anemia
Adequate iron levels
Replace low normal B12
# Hypokalemia likely secondary to GI losses
Replace potassium
Replace magnesium
# Primary Hypertension-hold metoprolol
# Depression-continue Wellbutrin
# Arthritis and chronic back pain-patient should not be taking meloxicam and ibuprofen especially with alcohol use
# Alcohol use disorder she drinks 4 Herbert shots every day
PPI
Cessation counseling
Replace thiamine and folic acid
Stopped alcohol 2 days SAND BUFFER
No signs of withdrawal symptoms. MSAS protocol.
# History of pancreatitis-on pancreatic enzymes
# DVT prophylaxis SCDs
# Full code
Total time spent to see the patient, examine the patient on the floor, review data and lab results, discuss treatment plan with patient, GI doctor and nursing staff around 55 minutes
Anticipated Discharge: Within 24 hours
Subjective/Interval History
-
Date of Service: March 02, 2024
No chest pain
No sob
No fevers
less diarrhea, seems non bloody stools now
Objective Data
-
Labs:
Laboratory Results
03/02/24
05:38
WBC 6.6
Hgb 8.6 L
Hct 25.5 L
Plt Count 271 D
Sodium 138
Potassium 3.7
Chloride 109 H
Carbon Dioxide 23
BUN 4 L
Creatinine 0.8
Glucose 96
Calcium 8.9
Total Bilirubin 0.2
AST 19
ALT 12
Alkaline Phosphatase 63
Vital Signs:
Vital Signs
Temp Pulse Resp BP Pulse Ox
98.6 F 95 16 134/81 100
03/02/24 07:00 03/02/24 07:00 03/02/24 07:00 03/02/24 07:00 03/02/24 08:15
I&O
03/01/24 03/02/24 03/03/24
06:59 06:59 06:59
Intake Total 640 / 640 1140 / 1140
Balance 640 / 640 1140 / 1140
--- NOTE | 2024-03-02 13:58 | CM ---
Case management following for d/c planning
Chart reviewed and met with pt
Transitioned to PO meds
CM will follow for d/c needs
Plan - anticipate home no needs
[2024-03-02 15:00] VITALS: BP 130/79
--- NOTE | 2024-03-02 16:45 | W.PN.ID1 ---
Date of Service
Date of Service: March 02, 2024
Today's Communication
Continue current course of metronidazole.
Assessment / Plan
Bacteremia with Fusobacterium
- Source unclear, but suspect GI.
- repeat blood cultures negative
Nausea/diarrhea
- improved
Leukocytosis
Anemia
Hx pancreatitis
HTN
Hx depression
Hx Chronic back pain
Recommendations:
Continue current course of metronidazole to complete an additional 5 days of therapy.
Chief Complaint
-: Bacteremia
Subjective / Review of Systems
Review of Systems: No Fever and No Chills
Vital Signs / Physical Exam
Vital Signs
Vital Signs
Temp Pulse Resp BP Pulse Ox
98.7 F 99 16 130/79 99
03/02/24 15:00 03/02/24 15:00 03/02/24 15:00 03/02/24 15:00 03/02/24 15:00
Physical Exam
Constitutional: No Acute Distress, Comfortable and Non-toxic
Eyes: Sclera Anicteric
Pulmonary: Non Labored
Gastrointestinal: Non Distended
Neurological: Awake and Alert
Psychological: Calm
Objective Data
Lab Data
Lab Results
03/02/24 05:38
03/02/24 05:38
PT 13.9 Sec (11.4-14.6) 02/25/24 07:07
INR 1.07 02/25/24 07:07
Estimated Creat Clear 70 ml/min 03/02/24 05:38
Total Bilirubin 0.2 mg/dl (0.2-1.3) 03/02/24 05:38
AST 19 U/L (14-36) 03/02/24 05:38
ALT 12 U/L (0-35) 03/02/24 05:38
Alkaline Phosphatase 63 U/L (38-126) 03/02/24 05:38
Most recent labs reviewed.
Micro Results:
02/24/24 17:29 Blood Culture - Final
Blood/Venous Fusobacterium species
Gram Stain - Final
02/27/24 09:26 Blood Culture - Preliminary
Blood/Venous No Growth in 4 days- Final report to follow
02/28/24 06:30 Salmonella/Shigella Culture - Final
Feces/Stool No Salmonella, Shigella, Aeromonas or Plesiomonas species
isolated.
Campylobacter Culture - Final
No Campylobacter species isolated.
Shiga Toxin Test - Final
No E. coli Shiga Toxin 1 or 2 detected.
02/24/24 20:12 Blood Culture - Final
Blood/Venous No Growth - Final Report
02/27/24 12:05 Urine Culture - Final
Urine NO GROWTH
02/26/24 10:57 C. difficile GDH Antigen & Toxins - Final
Feces/Stool Negative for toxigenic C.difficile
Imaging:
02/27/2024 CT abdomen/pelvis: Findings suggesting mild colitis of the splenic flexure and descending colon. New Nonobstructing left renal stone. Stable. Pancreatic atrophy.. Resolved previous signs of acute pancreatitis
[2024-03-02 23:52] VITALS: BP 102/50
[2024-03-03] MEDS: FLAGYL 500 MG PO ×2 (00:59→08:10)
[2024-03-03 06:20] LABS: Hematocrit 26.6 % (37.0-47.0); Hemoglobin 8.9 g/dL (12.0-16.0); Mean Corp Hgb Conc. 33.5 g/dL (33.0-37.0); Mean Corpuscular Hgb 32.8 pg (27.0-31.0); Mean Corpuscular Volume 98.2 fL (81.0-99.0); Mean Platelet Volume 9.6 fL (7.4-10.4); Platelet Count 273 10^3/uL (130-400); Red Blood Cell Count 2.71 10^6/uL (4.20-5.40); Red Cell Dist. Width 14.8 % (11.5-14.5); White Blood Cell Count 6.5 10^3/uL (4.8-10.8)
[2024-03-03 06:35] VITALS: BMI 21.5
[2024-03-03 07:00] VITALS: BP 133/91
[2024-03-03 07:26] LABS: Hematocrit 28.2 % (37.0-47.0); Hemoglobin 9.4 g/dL (12.0-16.0); Mean Corp Hgb Conc. 33.3 g/dL (33.0-37.0); Mean Corpuscular Volume 98.9 fL (81.0-99.0); Mean Platelet Volume 9.3 fL (7.4-10.4); Platelet Count 296 10^3/uL (130-400); Red Blood Cell Count 2.85 10^6/uL (4.20-5.40); Red Cell Dist. Width 14.8 % (11.5-14.5); White Blood Cell Count 7.5 10^3/uL (4.8-10.8)
--- NOTE | 2024-03-03 07:57 | VATNOTE ---
Left arm cord now 2cm in length, no redness noted.
[2024-03-03] MEDS: WELLBUTRIN REGULAR RELEASE 75 MG PO (08:09)
[2024-03-03] MEDS: ZENPEP DELAYED RELEASE CAPSULE 3 CAPSULE PO (08:10)
[2024-03-03] MEDS: VITAMIN B-12 1000 MCG PO (08:10)
[2024-03-03] MEDS: KCL 20 MEQ PO (08:10)
[2024-03-03] MEDS: WELLBUTRIN SR (12 hour sustained release) 150 MG PO (08:10)
[2024-03-03] MEDS: PROTONIX 40 MG PO (08:10)
[2024-03-03] MEDS: VITAMIN B1 100 MG PO (08:10)
[2024-03-03] MEDS: FOLVITE 1 MG PO (08:11)
--- NOTE | 2024-03-03 10:08 | W.DCSUMMARY ---
Discharge Summary
Discharge Data
Date of Admission: 02/24/24
Date of Discharge: 03/03/24
-
Pending Results: No
Hospital Course
63 years old female presented with sudden onset of nausea and diarrhea. Patient reported diarrhea was maroon-colored. She had hemoglobin around 8 and leukocytosis on admission. Scan of the abdomen and pelvis showed colitis in the splenic flexure
and descending colon. Patient was started on empiric antibiotics. She was evaluated by jig fitter. She was noticed to have acute blood loss anemia and hemoglobin dropped down to 6. She was given 2 units of blood transfusion. Blood
culture came positive for Fusobacterium species, likely intestinal source and she was followed by infectious diseases php consultant. Repeat blood culture showed no growth. Leukocytosis resolved. She did not have fevers. She did not have significant
abdominal pain. She continued to have black tarry loose stools in the hospital. Repeat CT angiogram of the abdominal and pelvis showed colitis in the splenic flexure and descending colon with some improvement. It also showed chronic splenic vein
thrombosis and resultant varices. She had pancreatic calcifications on the scan consistent with chronic pancreatitis and she was taking trem-dfy-temiicu pancreatic enzymes. Hemoglobin remained stable between 8 and 9. She had less frequent
stools. She was resumed on pancreatic enzyme. No fever. Patient remained hemodynamically stable and was discharged in a stable condition to follow-up with gastroenterology in the office.
Physical Exam
General: Well Developed, Well Nourished, Respiratory Distress and Obese
HEENT: Normocephalic, Moist mucous membranes, Atraumatic, PERRLA and Oxygen
Respiratory: Crackles (faint bibasilar crackles)
Cardiac: S1/S2 and Tachycardia
GI: Soft, Non Tender, Non Distended and Normal Bowel Sounds
Rectal: No rectal bleeding
Genito-urinary: Clear Urine
Musculoskeletal: No Clubbing, No Cyanosis and No Edema
Skin: Warm and Dry
Neuro: AO x 3
Hematologic/Lymphatic: No Lymphadenopathy
Psych: Calm.
Total discharge time spent to see the patient, examine the patient on the floor, review data and lab results, discuss discharge plan with patient and nursing staff around 65 minutes
Discharge Plan
-
Patient Disposition: Home (Routine Discharge)
Discharge Diagnosis/Procedures: Acute colitis,
Bacteremia, resolved
Chronic pancreatitis
one non-bleeding cratered gastric ulcer, non-bleeding superficial duodenal ulcers, Anemia, Low Potassium and Magnesium, Hypertension, Depression.
Diet: As tolerated and Low Residue
Additional Diets: Low reside diet for 5 days then advance as tolerated
Activity: As tolerated
Driving Restrictions: As prior to admission
Activity Restrictions/Additional Instructions:
Stop Alcohol use. No over the counter pain medicines except Tylenol. You need repeat Colonoscopy in 2 months. Please call GI office to get results of biopsy
Referrals:
Damian Worthy MD [Family Provider] - in one to two weeks
Margaret Colón DO [Active] - 03/09/24 7:30 am (Repeat EGD scheduled for April 19. You will receive a phone call prior for the exact time. )
Additional Discharge Medication Instructions: Stop Meloxicam and Ibuprofen.
Prescriptions:
New
cyanocobalamin (vitamin B-12) 1,000 mcg Tablet
1,000 mcg PO DAILY Qty: 30 0RF
thiamine HCl (vitamin B1) 100 mg Tablet
100 mg PO DAILY Qty: 30 0RF
magnesium chloride 64 mg tablet,delayed release (DR/EC)
64 mg PO DAILY Qty: 60 0RF
omeprazole 40 mg capsule,delayed release(DR/EC)
40 mg PO BID Qty: 120 0RF
metronidazole 500 mg Tablet
500 mg PO Q8 Qty: 15 0RF
Zenpep 10,000-32,000 -42,000 unit Capsule,Delayed Release(Dr/Ec)
3 cap PO ACHS Qty: 120 0RF
Continued
metoprolol tartrate 25 MG tablet
25 mg PO BID
bupropion HCl 150 mg tablet sustained-release 12 hr
150 mg PO BID
Rx Instructions:
02/24/2024, take with 75 mg for a total of 225 mg.
bupropion HCl 75 mg tablet
75 mg PO BID
Rx Instructions:
02/24/2024, take with 150 mg for a total of 225 mg.
loratadine 10 mg Tablet
10 mg PO DAILY
Changed
metaxalone 800 mg Tablet
800 mg PO BID PRN (Reason: Muscle Spasms) Qty: 0 0RF
Discontinued
meloxicam 15 mg Tablet
15 mg PO BID
loperamide [Imodium A-D] 2 mg Tablet
1 mg PO Q4H PRN (Reason: diarrhea)
ibuprofen 200 mg Tablet
600 mg PO TID
Pancreatic Enzymes
1 cap PO MEALS
Patient Comments:
02/24/2024, Pancreatic Enzyme Blend: 1000 mg; Protease: 223,000 LONG-TERM units; Amylase: 245,000 LONG-TERM units; Lipase: 35,500 LONG-TERM units. V[employer] Brand.
Discharge Orders:
Discharge Patient (As Directed); Ordered 03/03/24
Ordered By: Lia Love
Discharge Date and Time
Print Language: ITALIAN
--- NOTE | 2024-03-03 10:15 | CM ---
Patient seen at bedside. Patient states that she is anticipating discharge home today. Patient does not know if she signed up for Medicare or not, reviewed IMM and signed form placed on chart. Patient son to transport home and Patient stated that
she has no needs at this time. CM will continue to follow for discharge planning needs.
Plan; home with no needs
== END 2024-03-03 15:01 | disposition home or self-care (01) | DRG 871 ==
LOC: 3 WEST ACU 15:55
PROVIDERS: Internal Medicine Gastroenterology; Nurse Practitioner Family; Physician Assistant Medical; ADMITTING PHYSICIAN Hospitalist; ATTENDING PHYSICIAN Internal Medicine; CONSULT PHYSICIAN Internal Medicine; CONSULT PHYSICIAN Internal Medicine Infectious Disease; EMERGENCY PHYSICIAN Emergency Medicine; FAMILY PHYSICIAN Family Medicine
PROC: 30233N1 Transfusion of Nonautologous Red Blood Cells into Peripheral Vein, Percutaneous Approach (ICD-10-PCS; 2024-02-24)
PROC: 0DB78ZX Excision of Stomach, Pylorus, Via Natural or Artificial Opening Endoscopic, Diagnostic (ICD-10-PCS; 2024-02-25)
PROC: 0DJD8ZZ Inspection of Lower Intestinal Tract, Via Natural or Artificial Opening Endoscopic (ICD-10-PCS; 2024-02-29)
PROC: 0DJ08ZZ Inspection of Upper Intestinal Tract, Via Natural or Artificial Opening Endoscopic (ICD-10-PCS; 2024-02-29)
DX: A41.59 Other Gram-negative sepsis (principal); K25.4 Chronic or unspecified gastric ulcer with hemorrhage; K26.4 Chronic or unspecified duodenal ulcer with hemorrhage; D62 Acute posthemorrhagic anemia; E87.20 Acidosis, unspecified; K86.1 Other chronic pancreatitis; I82.891 Chronic embolism and thrombosis of other specified veins; K55.9 Vascular disorder of intestine, unspecified; K52.9 Noninfective gastroenteritis and colitis, unspecified; I10 Essential (primary) hypertension; F32.A Depression, unspecified; F41.9 Anxiety disorder, unspecified; K44.9 Diaphragmatic hernia without obstruction or gangrene; K31.89 Other diseases of stomach and duodenum; K64.8 Other hemorrhoids; G89.29 Other chronic pain; M54.2 Cervicalgia; E86.0 Dehydration; D72.829 Elevated white blood cell count, unspecified; E87.6 Hypokalemia; M19.90 Unspecified osteoarthritis, unspecified site; F10.10 Alcohol abuse, uncomplicated; Z87.891 Personal history of nicotine dependence; Z79.1 Long term (current) use of non-steroidal anti-inflammatories (NSAID); Z80.0 Family history of malignant neoplasm of digestive organs; Z87.11 Personal history of peptic ulcer disease
CPT/HCPCS: 74174; 74177; 80048; 80053; 81003; 81015; 82607; 82728; 82746; 83540; 83550; 83690; 83735; 85014; 85018; 85025; 85027; 85610; 86850; 86900; 86901; 86920; 87040; 87045; 87046; 87086; 87149; 87205; 87324; 87427; 87449; 88342; 96361; 96374; 96375; 99284; P9016; Q9967

== ENCOUNTER → 2024-04-19 06:31 | Day surgery (SDC) | payer OTHER, SELFPAY | LOC: GI 06:31 | PROVIDERS: ATTENDING PHYSICIAN Internal Medicine | DX: D50.9 Iron deficiency anemia, unspecified (principal); K64.8 Other hemorrhoids; K57.30 Diverticulosis of large intestine without perforation or abscess without bleeding; K55.20 Angiodysplasia of colon without hemorrhage; K58.9 Irritable bowel syndrome, unspecified; K22.2 Esophageal obstruction; K31.89 Other diseases of stomach and duodenum; K27.3 Acute peptic ulcer, site unspecified, without hemorrhage or perforation; K29.50 Unspecified chronic gastritis without bleeding | CPT/HCPCS: 43255; 45382; 43239; 88305; 88342; J1610 ==

== ENCOUNTER → 2024-07-15 06:29 | Day surgery (SDC) | payer OTHER, SELFPAY | LOC: GI 06:29 | PROVIDERS: ATTENDING PHYSICIAN Internal Medicine | DX: Z09 Encounter for follow-up examination after completed treatment for conditions other than malignant neoplasm (principal); K44.9 Diaphragmatic hernia without obstruction or gangrene; K22.2 Esophageal obstruction; K31.89 Other diseases of stomach and duodenum; Z87.11 Personal history of peptic ulcer disease | CPT/HCPCS: 43235 ==